=== PATIENT | male | born 1945 | race Caucasian/White ===

== ENCOUNTER 2024-10-20 17:15 | Inpatient (IN) | payer MEDICARE, OTHER ==
--- NOTE | 2024-10-20 17:30 | ERPHSYRPT ---
- History of Present Illness Time Seen by Provider: 10/20/24 17:30 Historian: patient, family Exam Limitations: no limitations Physician History: This is a cachectic appearing 79-year-old white male patient of Dr. Greenwood, out of [facility], and presents by private vehicle accompanied by family with a complaint of nausea vomiting and constipation worsening over 3 days. Patient states he cannot hold anything down. Patient has a history in the past of a colovesical fistula and underwent a colectomy at that time. Patient has stage III kidney disease. Patient has a history of gastroesophageal reflux disease, hypertension and hyperlipidemia. Timing/Duration: day(s) (3) Activities at Onset: none Quality: cramping, fullness, pressure Abdominal Pain Onset Location: generalized abdomen Pain Radiation: no radiation Severity of Pain-Max: moderate Severity of Pain-Current: moderate Modifying Factors: Improves With: vomiting, other (Constipation) Associated Symptoms: loss of appetite, nausea, vomiting, weakness Previous symptoms: no prior history, no recent treatment Allergies/Adverse Reactions: No Known Drug Allergies Allergy (Verified 10/20/24 17:41) Home Medications: Amlodipine Besylate [Norvasc] 2.5 mg PO DAILY 10/20/24 [History] Aspirin 81 mg PO DAILY 10/20/24 [History] Cyanocobalamin (Vitamin B-12) [Vitamin B-12] 2,500 mcg PO DAILY 10/20/24 [History] Ferrous Sulfate [Iron] 325 mg PO DAILY 10/20/24 [History] Fluticasone/Vilanterol [Breo Ellipta 100-25 Mcg Inhalr] 1 inh PO DAILY 10/20/24 [History] Gabapentin [Neurontin ] 100 mg PO DAILY 10/20/24 [History] Lactobacillus Combination No.4 [Probiotic] 1 each PO BID 10/20/24 [History] Lansoprazole 30 mg PO DAILY 10/20/24 [History] Levothyroxine Sodium 50 Mcg [Synthroid 50 Mcg] 50 mcg PO DAILY 10/20/24 [History] Metoprolol Tartrate 25 mg [Lopressor 25MG Tab] 25 mg PO BID 10/20/24 [History] Pravastatin Sodium 40 mg PO DAILY 10/20/24 [History] Primidone 50 MG [Mysoline 50Mg] 50 mg PO DAILY 10/20/24 [History] Tamsulosin HCl [Flomax] 0.4 mg PO DAILY 10/20/24 [History] Travel Risk - International Travel Have you traveled outside of the country in past 3 weeks: No - Emerging Infectious Disease Are you exhibiting symptoms associated with any current EIDs: No Symptoms: Abdominal Pain - Review of Systems Constitutional: Weakness Eyes: No Symptoms Ears, Nose, & Throat: No Symptoms Respiratory: No Symptoms Cardiac: No Symptoms Abdominal/Gastrointestinal: Abdominal Pain, Nausea, Vomiting, Constipation, Appetite Changes Genitourinary Symptoms: No Symptoms Musculoskeletal: No Symptoms Skin: No Symptoms Neurological: No Symptoms Psychological: No Symptoms Endocrine: No Symptoms Hematologic/Lymphatic: No Symptoms Immunological/Allergic: No Symptoms All Other Systems: Reviewed and Negative - Past Medical History Pertinent Past Medical History: Yes - Nursing Vital Signs Nursing Vital Signs: Initial Vital Signs Temperature 98.3 F 10/20/24 17:21 Pulse Rate 89 10/20/24 17:21 Respiratory Rate 20 10/20/24 17:21 Blood Pressure 126/77 10/20/24 17:21 O2 Sat by Pulse Oximetry 96 10/20/24 17:21 Pain Scale Pain Intensity 8 - Physical Exam General Appearance: mild distress, alert, anxiety, cachetic Eye Exam: PERRL/EOMI, eyes nml inspection Ears, Nose, Throat Exam: dry mucous membranes Neck Exam: normal inspection, non-tender, supple, full range of motion Respiratory Exam: normal breath sounds, lungs clear, airway intact, No chest tenderness, No respiratory distress Cardiovascular Exam: regular rate/rhythm, normal heart sounds, normal peripheral pulses Gastrointestinal/Abdomen Exam: soft, normal bowel sounds, tenderness (Generalized to palpation), guarding (Generalized to palpation), No rebound Rectal Exam: not done Back Exam: normal inspection, normal range of motion, No CVA tenderness, No vertebral tenderness Extremity Exam: normal inspection, normal range of motion, pelvis stable Neurologic Exam: alert, oriented x 3, cooperative, pedicab driver II-XII nml as tested, nml cerebellar function, nml station & gait, sensation nml Skin Exam: normal color, warm, dry Lymphatic Exam: No adenopathy SpO2 Interpretation: normal O2 Delivery: Room Air - Course Nursing assessment & vital signs reviewed: Yes Ordered Tests: Active Orders 24 hr Category Date Time Status IV Insertion STAT Care 10/20/24 17:36 Active ABDOMEN AND PELVIS W/0 CONTRAS [CT] Stat Exams 10/20/24 17:37 Completed AMYLASE Stat Lab 10/20/24 17:52 Completed CBC W DIFF Stat Lab 10/20/24 17:52 Completed CMP Stat Lab 10/20/24 17:52 Completed CULTURE,URINE Stat Lab 10/20/24 17:52 Received LIPASE Stat Lab 10/20/24 17:52 Completed Lactic Acid Stat Lab 10/20/24 17:36 Completed UA W/RFX UR CULTURE Stat Lab 10/20/24 17:52 Completed Medication Summary Discontinued Medications Generic Name Dose Route Start Last Admin Trade Name Freq PRN Reason Stop Dose Admin Hydromorphone HCl 0.5 mg 10/20/24 17:36 10/20/24 18:34 Hydromorphone 1 Mg/1ml Inj IV 10/20/24 17:37 0.5 mg STAT ONE Administration Hydromorphone HCl Confirm 10/20/24 18:26 Hydromorphone 1 Mg/1ml Inj Administered 10/20/24 18:27 Dose 1 mg .ROUTE .STK-MED ONE Sodium Chloride 1,000 mls @ 999 mls/hr 10/20/24 17:36 10/20/24 20:07 Sodium Chloride 0.9% 1000 Ml IV 10/20/24 18:36 Infused .Q1H1M STA Infusion Sodium Chloride Confirm 10/20/24 18:27 Sodium Chloride 0.9% 1000 Ml Administered 10/20/24 18:28 Dose 1,000 mls @ ud .ROUTE .STK-MED ONE Ceftriaxone Sodium 1 gm in 100 mls @ 200 mls/hr 10/20/24 18:46 10/20/24 20:35 Rocephin 1 Gm / 100 Ml Nacl IV 10/20/24 19:15 Infused STAT ONE Infusion Ceftriaxone Sodium Confirm 10/20/24 19:56 Rocephin 1 Gm / 100 Ml Nacl Administered 10/20/24 19:57 Dose 1 gm in 100 mls @ ud IV .STK-MED ONE Ondansetron HCl 4 mg 10/20/24 17:36 10/20/24 18:30 Ondansetron Hcl 4 Mg/2 Ml Vial IV 10/20/24 17:37 4 mg STAT ONE Administration Ondansetron HCl Confirm 10/20/24 18:25 Ondansetron Hcl 4 Mg/2 Ml Vial Administered 10/20/24 18:26 Dose 4 mg .ROUTE .STK-MED ONE Pantoprazole Sodium 40 mg 10/20/24 17:36 10/20/24 18:32 Pantoprazole 40 Mg Vial IV 10/20/24 17:37 40 mg STAT ONE Administration Pantoprazole Sodium Confirm 10/20/24 18:26 Pantoprazole 40 Mg Vial Administered 10/20/24 18:27 Dose 40 mg IV .STK-MED ONE Lab/Rad Data: Laboratory Result Diagrams 10/20/24 17:52 10/20/24 17:52 Laboratory Results 10/20/24 10/20/24 10/20/24 Range/Units 17:52 17:52 17:52 WBC 10.6 H (4.23-9.07) x10^3/uL RBC 5.31 (4.63-6.08) x10^6/uL Hgb 16.7 (13.7-17.5) g/dL Hct 48.1 (40.1-51.0) % MCV 90.6 (79.0-92.2) fL MCH 31.5 (25.7-32.2) pg MCHC 34.7 (32.3-36.5) g/dL RDW 13.1 (11.6-14.4) % Plt Count 195 (163-337) x10^3/uL MPV 9.6 (9.4-12.4) fL Gran % 72.9 H (34.0-67.9) % Immature Gran % (Auto) 0.2 (0.001-0.429) % Nucleat RBC Rel Count 0.0 (0.00-0.2) % Eos # (Auto) 0.59 H (0.04-0.54) x10^3/uL Immature Gran # (Auto) 0.02 (0.001-0.031) x10^3u/L Absolute Lymphs (auto) 1.27 L (1.32-3.57) x10^3/uL Absolute Monos (auto) 0.93 H (0.30-0.82) x10^3/uL Absolute Nucleated RBC 0.00 (0.00-0.012) x10^3u/L Lymphocytes % 12.0 L (21.8-53.1) % Monocytes % 8.8 (5.3-12.2) % Eosinophils % 5.6 (0.8-7.0) % Basophils % 0.5 (0.2-1.2) % Absolute Granulocytes 7.72 H (1.78-5.38) x10^3/uL Basophils # 0.05 (0.01-0.08) x10^3/uL Sodium 136 (135-145) mmol/L Potassium 4.5 (3.5-5.1) mmol/L Chloride 97 L (98-107) mmol/L Carbon Dioxide 25 (22-30) mmol/L Anion Gap 18.2 H (5-15) MEQ/L BUN 31 H (9-20) mg/dL Creatinine 1.84 H (0.66-1.25) mg/dL Estimated GFR 37.3 ML/MIN Glucose 112 H (74-106) mg/dL Lactic Acid (0.4-2.0) Calcium 10.1 (8.4-10.2) mg/dL Total Bilirubin 0.80 (0.2-1.3) mg/dL AST 24 (17-59) U/L ALT 12 (0-50) U/L Alkaline Phosphatase 129 H (38-126) U/L Serum Total Protein 7.8 (6.3-8.2) g/dL Albumin 4.6 (3.5-5.0) g/dL Amylase 67 (30-110) U/L Lipase 96 (23-300) U/L Urine Color Dark Yellow (Yellow) Urine Appearance Clear (Clear) Urine pH 5.0 (4.6-8.0) Ur Specific Vendor >=1.030 A (1.005-1.030) Urine Protein Trace A (Negative) Urine Glucose (UA) Negative (Negative) mg/dL Urine Ketones 15 A (Negative) Urine Blood Negative (Negative) Urine Nitrite Negative (Negative) Urine Bilirubin Negative (Negative) Urine Urobilinogen 1.0 A (0.2) mg/dL Ur Leukocyte Esterase Moderate A (Negative) U Hyaline Cast (Auto) 6-10 A (0-2) /LPF Urine Microscopic RBC 0-2 (0-5) /HPF Urine Microscopic WBC 21-50 A (0-5) /HPF Ur Epithelial Cells Moderate A (None Seen) /HPF Urine Bacteria None Seen (None Seen) /HPF Urine Culture Reflexed YES (NO) 10/20/24 Range/Units 17:36 WBC (4.23-9.07) x10^3/uL RBC (4.63-6.08) x10^6/uL Hgb (13.7-17.5) g/dL Hct (40.1-51.0) % MCV (79.0-92.2) fL MCH (25.7-32.2) pg MCHC (32.3-36.5) g/dL RDW (11.6-14.4) % Plt Count (163-337) x10^3/uL MPV (9.4-12.4) fL Gran % (34.0-67.9) % Immature Gran % (Auto) (0.001-0.429) % Nucleat RBC Rel Count (0.00-0.2) % Eos # (Auto) (0.04-0.54) x10^3/uL Immature Gran # (Auto) (0.001-0.031) x10^3u/L Absolute Lymphs (auto) (1.32-3.57) x10^3/uL Absolute Monos (auto) (0.30-0.82) x10^3/uL Absolute Nucleated RBC (0.00-0.012) x10^3u/L Lymphocytes % (21.8-53.1) % Monocytes % (5.3-12.2) % Eosinophils % (0.8-7.0) % Basophils % (0.2-1.2) % Absolute Granulocytes (1.78-5.38) x10^3/uL Basophils # (0.01-0.08) x10^3/uL Sodium (135-145) mmol/L Potassium (3.5-5.1) mmol/L Chloride (98-107) mmol/L Carbon Dioxide (22-30) mmol/L Anion Gap (5-15) MEQ/L BUN (9-20) mg/dL Creatinine (0.66-1.25) mg/dL Estimated GFR ML/MIN Glucose (74-106) mg/dL Lactic Acid 1.5 (0.4-2.0) Calcium (8.4-10.2) mg/dL Total Bilirubin (0.2-1.3) mg/dL AST (17-59) U/L ALT (0-50) U/L Alkaline Phosphatase (38-126) U/L Serum Total Protein (6.3-8.2) g/dL Albumin (3.5-5.0) g/dL Amylase (30-110) U/L Lipase (23-300) U/L Urine Color (Yellow) Urine Appearance (Clear) Urine pH (4.6-8.0) Ur Specific Vendor (1.005-1.030) Urine Protein (Negative) Urine Glucose (UA) (Negative) mg/dL Urine Ketones (Negative) Urine Blood (Negative) Urine Nitrite (Negative) Urine Bilirubin (Negative) Urine Urobilinogen (0.2) mg/dL Ur Leukocyte Esterase (Negative) U Hyaline Cast (Auto) (0-2) /LPF Urine Microscopic RBC (0-5) /HPF Urine Microscopic WBC (0-5) /HPF Ur Epithelial Cells (None Seen) /HPF Urine Bacteria (None Seen) /HPF Urine Culture Reflexed (NO) - Progress Progress: improved, pain not gone completely, re-examined Progress Note: 10/20/24 17:43 My medical decision making and the assignment of at least moderate complexity of this patient's medical issue today. The assignment of moderate complexity is based on review of the patient's past medical history, review of the patient's medication list, review the patient drug allergy list, history present illness and physical findings on examination. The workup in this patient includes placement of intravenous line, infusion of normal saline solution, infusion of Dilaudid, Protonix and Zofran intravenously, CBC, CMP, lactic acid level, amylase, lipase, urinalysis, CT scan of the abdomen pelvis without contrast. Differential diagnosis includes but is not limited to perforated viscus, bowel obstruction, ileus, pancreatitis, diverticulitis, colitis 10/20/24 20:19 I interpreted the patient's laboratory data results. Based on laboratory data results the patient has evidence of urinary tract infection and dehydration. The CT scan of the abdomen pelvis without contrast was interpreted by the radiologist and I reviewed the impression. The patient states dilated jejunal bowel loops with multiple air-fluid levels but no signs of ischemia. Features consistent with small bowel obstruction. There is evidence of cholelithiasis without signs of acute cholecystitis. 10/20/24 21:[address] Haque, our telehospitalist on at this time. I reviewed the patient history, physical findings, workup results. We will place this patient in observation, provide him with bowel rest, intravenous fluids, antiemetics and obtain a surgical consultation. Counseled pt/family regarding: lab results, diagnosis, rad results Medical Desision Making - Independent Historian Additional History obtained from: Family - Diagnostic Testing Diagnostic test were ordered, analyzed, and reviewed by me: Yes Radiological Interpretation: Reviewed by me, Teleradiologist Report - Risk of complications The pt has a high risk of morbidity or mortality based on: Decision regarding hospitilization or escalation of hosp level of care - Departure Departure Disposition: Observation Clinical Impression: Small bowel obstruction, Dehydration, Urinary tract infection Condition: Stable Critical Care Time: No
[2024-10-20 17:55] LABS: BASOPHIL % 0.5 % (0.2-1.2); Basophil (Absolute #) 0.05 x10^3/uL (0.01-0.08); Eosinophil (Absolute #) 0.59 x10^3/uL (0.04-0.54); Hematocrit 48.1 % (40.1-51.0); Hemoglobin 16.7 g/dL (13.7-17.5); IMMATURE GRAN # 0.02 x10^3u/L (0.001-0.031); IMMATURE GRAN % 0.2 % (0.001-0.429); Lymphocyte (Absolute #) 1.27 x10^3/uL (1.32-3.57); Mean Corpuscular Hemoglobin 31.5 pg (25.7-32.2); Mean Corpuscular Hgb Concent. 34.7 g/dL (32.3-36.5); Monocyte (Absolute #) 0.93 x10^3/uL (0.30-0.82); NUCLEATED RBC # 0.00 x10^3u/L (0.00-0.012); NUCLEATED RBC % 0.0 % (0.00-0.2); Platelet Count 195 x10^3/uL (163-337); Red Blood Count 5.31 x10^6/uL (4.63-6.08); White Blood Count 10.6 x10^3/uL (4.23-9.07)
[2024-10-20 18:08] LABS: Calcium 10.1 mg/dL (8.4-10.2); Carbon Dioxide 25.0 mmol/L (22-30); Creatinine 1 1.84 mg/dL (0.66-1.25); EST GLOMERULAR FILTRATION RATE 37.3 ML/MIN; Glucose 112.0 mg/dL (74-106); Potassium 4.5 mmol/L (3.5-5.1); SGOT/AST 24.0 U/L (17-59); SGPT/ALT 12.0 U/L (0-50); Total Protein 7.8 g/dL (6.3-8.2)
[2024-10-20 18:18] LABS: Glucose, Urine Negative (Negative); Protein,Urine Dip Trace (Negative); RBC 0-2 /HPF (0-5); WBC 21-50 /HPF (0-5)
[2024-10-20] MEDS ORDERED: Zofran 4 MG/2 ML VIAL ONE (18:25)
[2024-10-20] MEDS ORDERED: PROTONIX 40 MG IV IV ONE (18:26)
[2024-10-20] MEDS ORDERED: Hydromorphone 1 mg/ml Injection ONE (18:26)
[2024-10-20] MEDS: Zofran 4 MG/2 ML VIAL IV ONE (18:30)
[2024-10-20] MEDS: PROTONIX 40 MG IV IV ONE (18:32)
[2024-10-20] MEDS: Hydromorphone 1 mg/ml Injection IV ONE (18:34)
--- NOTE | 2024-10-20 19:38 | XRAY ---
CLINICAL HISTORY: N/P; constipation; ABD pain COMPARISON: No prior studies available for comparison. TECHNIQUE: Non-contrast CT of the abdomen and pelvis was performed, with the following protocol: axial images, and reconstructed coronal and sagittal images. One of the following dose reduction techniques was utilized for this exam: Automated exposure control, adjustment of the mA and/or kV according to patient size, and use of iterative reconstruction. FINDINGS: Abdomen: Liver: Normal in size, shape, and density. No focal lesions, cysts, or masses were identified. Gallbladder and Biliary System: Multiple small gallstones, averaging 3 mm. No signs of acute cholecystitis. Pancreas: Pancreatic head, body, and tail are visualized and appear normal in size and density. No pancreatic masses or calcifications were noted. Spleen: Normal in size, shape, and density. No splenic lesions or masses were identified. Calcific foci are noted likely granulmatous. Appendix: The appendix is normal in size without chelsea-appendiceal fat stranding and without an appendicolith. No evidence of appendiceal abscess or perforation. Kidneys and Adrenal Glands: Both kidneys are normal in size, shape, and position. Cortical thickness is decreased. No renal calculi or hydronephrosis. Left renal simple cyst measuring 2.5 cm. Adrenal glands are unremarkable. Abdominal Aorta and Vessels: Atherosclerotic changes of the aorta and both iliac vessels. Pelvis: Urinary Bladder is inadequately distended. Prostate: Mild prostatomegaly. Seminal Vesicles: Normal appearance without abnormal enlargement or mass. Peritoneal and Retroperitoneal Structures: No free fluid or abnormal fluid collections were identified within the abdomen or pelvis. No lymphadenopathy was noted. Bowel: Dilated jejunal bowel loops, showing multiple air fluid levels, no signs of ischemia at the time of examination. Features of acute small bowel obstruction. Distal small bowel loops are collapsed at the pelvis. Uncomplicated colonic diverticulosis. Metallic jaspreet related to the rectum (post-operative changes). Bones and Soft Tissues: Pelvic bones and soft tissues are unremarkable. No fractures or abnormal masses were identified. Diffuse spondylotic changes. Moderate right lumbar dextroscoliosis with Walton angle 32°. Left sided hip replacement. IMPRESSION: 1. Dilated jejunal bowel loops, showing multiple air fluid levels, no signs of ischemia at the time of examination. Features of acute small bowel obstruction. 2. Multiple small gallstones, averaging 3 mm. No signs of acute cholecystitis. Electronically Signed by: Enoc Gan MD. (10/20/2024 19:35:47 EDT)
[2024-10-20] MEDS ORDERED: ROCEPHIN 1 GM / 100 ML NaCl 1 GM/100 ML IVPB IV ONE (19:56)
[2024-10-20] MEDS: ROCEPHIN 1 GM / 100 ML NaCl 1 GM/100 ML IVPB IV ONE (20:00)
[2024-10-20] MEDS: TYLENOL 325 MG PO PRN (22:15)
--- NOTE | 2024-10-20 22:49 | PCM.HP ---
History of Present Illness - Chief Complaint Chief Complaint: sbo Date: 10/20/24 History of Present Illness: Mr. CARRASCO is a 79 year old male with a past medical history significant for hypertension, hyperlipidemia and history of a colovesical fistula status post colectomy and complicated by NARDA who presents to the hospital with a 3 day history of nausea, abdominal pain and multiple episodes of vomiting (about 7 times). Upon arrival, he was given IV pain medicine and underwent CT scan abd that demonstrated small bowel obstruction but no evidence of abscess or acute cholecystitis. He was started on IV antibiotics and has been recommended for admission. He is seen via telehealth with friend at bedside, awake/alert. No fever/chills. No chest pain or shortness of breath. No diarrhea. No dysuria, hematuria or urgency. Creatinine was elevated at 1.8 with a baseline of around 1.5. - Review of Systems Constitutional: No Fever, No Chills Eyes: No Vision Changes Ears, Nose, & Throat: No Sinus Drainage Respiratory: No Cough, No Orthopnea, No Short Of Breath Cardiac: No Chest Pain, No Edema, No Palpitations Abdominal/Gastrointestinal: Abdominal Pain, Nausea, Vomiting, No Diarrhea Genitourinary Symptoms: No Dysuria, No Frequency, No Hematuria Musculoskeletal: No Arthralgias Skin: No Rash Neurological: No Focal Weakness, No Headache Psychological: No Suicidal Ideations Endocrine: No Polyuria, No Polydipsia Hematologic/Lymphatic: No Easy Bleeding Medications & Allergies Home Medications: Home Medication List Amlodipine Besylate [Norvasc] 2.5 mg PO DAILY 10/20/24 [History Confirmed 10/20/24] Aspirin 81 mg PO DAILY 10/20/24 [History Confirmed 10/20/24] Cyanocobalamin (Vitamin B-12) [Vitamin B-12] 2,500 mcg PO DAILY 10/20/24 [History Confirmed 10/20/24] Ferrous Sulfate [Iron] 325 mg PO DAILY 10/20/24 [History Confirmed 10/20/24] Fluticasone/Vilanterol [Breo Ellipta 100-25 Mcg Inhalr] 1 inh PO DAILY 10/20/24 [History Confirmed 10/20/24] Gabapentin [Neurontin ] 100 mg PO DAILY 10/20/24 [History Confirmed 10/20/24] Lansoprazole 30 mg PO DAILY 10/20/24 [History Confirmed 10/20/24] Levothyroxine Sodium 50 Mcg [Synthroid 50 Mcg] 50 mcg PO DAILY 10/20/24 [History Confirmed 10/20/24] Metoprolol Tartrate 25 mg [Lopressor 25MG Tab] 25 mg PO BID 10/20/24 [History Confirmed 10/20/24] Pravastatin Sodium 40 mg PO DAILY 10/20/24 [History Confirmed 10/20/24] Primidone 50 MG [Mysoline 50Mg] 50 mg PO DAILY 10/20/24 [History Confirmed 10/20/24] Tamsulosin HCl [Flomax] 0.4 mg PO DAILY 10/20/24 [History Confirmed 10/20/24] Allergies/Adverse Reactions: Allergies Allergy/AdvReac Type Severity Reaction Status Date / Time No Known Drug Allergies Allergy Verified 10/20/24 17:41 - Past Medical History Past Medical History: Yes Cardiac History: Arrhythmia, Hypertension Respiratory History: COPD, Pneumonia Endocrine Medical History: Hypothyroidism GI Medical History: Other History: Renal Disease - Past Surgical History Past Surgical History: Yes GI Surgical History: Colon Resection Musculskeletal Surgical Hx: Joint Replacement Other Surgical History: left hip - Social History Smoking Status: Never smoker Exposure to second hand smoke: No Alcohol: None Drug Use: none - Social Determinants of Health Will the patient participate in the screening: Yes Do you worry about a steady place to live?: Yes Do you have any problems with any of the following?: No known problems In the past 12 months,have you had to go without utilities?: No Have you or anyone in your house had to go without enough: No Transportation Issues: No Has anyone in your support network made you feel unsafe?: No Does the patient want assistance with any of the above?: No - Physical Exam Vital Signs: Vital Signs - 24 hr Temp Pulse Resp BP BP Pulse Ox 10/20/24 21:34 98.8 F 79 16 147/80 10/20/24 21:05 98.8 F 79 16 147/80 10/20/24 21:00 72 117/69 95 10/20/24 20:30 75 16 118/73 94 L 10/20/24 20:00 76 19 121/58 94 L 10/20/24 19:30 74 20 128/65 95 10/20/24 19:00 73 13 128/71 95 10/20/24 18:30 81 18 121/80 95 10/20/24 17:30 88 15 120/79 94 L 10/20/24 17:21 98.3 F 89 20 126/77 96 General Appearance: no apparent distress Neurologic Exam: alert, oriented x 3 Ears, Nose, Throat Exam: dry mucous membranes Neck Exam: supple Respiratory Exam: No respiratory distress Cardiovascular Exam: regular rate/rhythm Gastrointestinal/Abdomen Exam: soft, tenderness, guarding Back Exam: normal inspection Extremity Exam: No pedal edema, No swelling Skin Exam: normal color, No rash Results - Labs Lab/Micro Results: Lab Results-Last 24 Hours 10/20/24 10/20/24 10/20/24 Range/Units 17:36 17:52 17:52 WBC 10.6 H (4.23-9.07) x10^3/uL RBC 5.31 (4.63-6.08) x10^6/uL Hgb 16.7 (13.7-17.5) g/dL Hct 48.1 (40.1-51.0) % MCV 90.6 (79.0-92.2) fL MCH 31.5 (25.7-32.2) pg MCHC 34.7 (32.3-36.5) g/dL RDW 13.1 (11.6-14.4) % Plt Count 195 (163-337) x10^3/uL MPV 9.6 (9.4-12.4) fL Gran % 72.9 H (34.0-67.9) % Immature Gran % (Auto) 0.2 (0.001-0.429) % Nucleat RBC Rel Count 0.0 (0.00-0.2) % Eos # (Auto) 0.59 H (0.04-0.54) x10^3/uL Immature Gran # (Auto) 0.02 (0.001-0.031) x10^3u/L Absolute Lymphs (auto) 1.27 L (1.32-3.57) x10^3/uL Absolute Monos (auto) 0.93 H (0.30-0.82) x10^3/uL Absolute Nucleated RBC 0.00 (0.00-0.012) x10^3u/L Lymphocytes % 12.0 L (21.8-53.1) % Monocytes % 8.8 (5.3-12.2) % Eosinophils % 5.6 (0.8-7.0) % Basophils % 0.5 (0.2-1.2) % Absolute Granulocytes 7.72 H (1.78-5.38) x10^3/uL Basophils # 0.05 (0.01-0.08) x10^3/uL Sodium (135-145) mmol/L Potassium (3.5-5.1) mmol/L Chloride (98-107) mmol/L Carbon Dioxide (22-30) mmol/L Anion Gap (5-15) MEQ/L BUN (9-20) mg/dL Creatinine (0.66-1.25) mg/dL Estimated GFR ML/MIN Glucose (74-106) mg/dL Lactic Acid 1.5 (0.4-2.0) Calcium (8.4-10.2) mg/dL Total Bilirubin (0.2-1.3) mg/dL AST (17-59) U/L ALT (0-50) U/L Alkaline Phosphatase (38-126) U/L Serum Total Protein (6.3-8.2) g/dL Albumin (3.5-5.0) g/dL Amylase (30-110) U/L Lipase (23-300) U/L Urine Color Dark Yellow (Yellow) Urine Appearance Clear (Clear) Urine pH 5.0 (4.6-8.0) Ur Specific Mcgregor >=1.030 A (1.005-1.030) Urine Protein Trace A (Negative) Urine Glucose (UA) Negative (Negative) mg/dL Urine Ketones 15 A (Negative) Urine Blood Negative (Negative) Urine Nitrite Negative (Negative) Urine Bilirubin Negative (Negative) Urine Urobilinogen 1.0 A (0.2) mg/dL Ur Leukocyte Esterase Moderate A (Negative) U Hyaline Cast (Auto) 6-10 A (0-2) /LPF Urine Microscopic RBC 0-2 (0-5) /HPF Urine Microscopic WBC 21-50 A (0-5) /HPF Ur Epithelial Cells Moderate A (None Seen) /HPF Urine Bacteria None Seen (None Seen) /HPF Urine Culture Reflexed YES (NO) 10/20/24 Range/Units 17:52 WBC (4.23-9.07) x10^3/uL RBC (4.63-6.08) x10^6/uL Hgb (13.7-17.5) g/dL Hct (40.1-51.0) % MCV (79.0-92.2) fL MCH (25.7-32.2) pg MCHC (32.3-36.5) g/dL RDW (11.6-14.4) % Plt Count (163-337) x10^3/uL MPV (9.4-12.4) fL Gran % (34.0-67.9) % Immature Gran % (Auto) (0.001-0.429) % Nucleat RBC Rel Count (0.00-0.2) % Eos # (Auto) (0.04-0.54) x10^3/uL Immature Gran # (Auto) (0.001-0.031) x10^3u/L Absolute Lymphs (auto) (1.32-3.57) x10^3/uL Absolute Monos (auto) (0.30-0.82) x10^3/uL Absolute Nucleated RBC (0.00-0.012) x10^3u/L Lymphocytes % (21.8-53.1) % Monocytes % (5.3-12.2) % Eosinophils % (0.8-7.0) % Basophils % (0.2-1.2) % Absolute Granulocytes (1.78-5.38) x10^3/uL Basophils # (0.01-0.08) x10^3/uL Sodium 136 (135-145) mmol/L Potassium 4.5 (3.5-5.1) mmol/L Chloride 97 L (98-107) mmol/L Carbon Dioxide 25 (22-30) mmol/L Anion Gap 18.2 H (5-15) MEQ/L BUN 31 H (9-20) mg/dL Creatinine 1.84 H (0.66-1.25) mg/dL Estimated GFR 37.3 ML/MIN Glucose 112 H (74-106) mg/dL Lactic Acid (0.4-2.0) Calcium 10.1 (8.4-10.2) mg/dL Total Bilirubin 0.80 (0.2-1.3) mg/dL AST 24 (17-59) U/L ALT 12 (0-50) U/L Alkaline Phosphatase 129 H (38-126) U/L Serum Total Protein 7.8 (6.3-8.2) g/dL Albumin 4.6 (3.5-5.0) g/dL Amylase 67 (30-110) U/L Lipase 96 (23-300) U/L Urine Color (Yellow) Urine Appearance (Clear) Urine pH (4.6-8.0) Ur Specific Mcgregor (1.005-1.030) Urine Protein (Negative) Urine Glucose (UA) (Negative) mg/dL Urine Ketones (Negative) Urine Blood (Negative) Urine Nitrite (Negative) Urine Bilirubin (Negative) Urine Urobilinogen (0.2) mg/dL Ur Leukocyte Esterase (Negative) U Hyaline Cast (Auto) (0-2) /LPF Urine Microscopic RBC (0-5) /HPF Urine Microscopic WBC (0-5) /HPF Ur Epithelial Cells (None Seen) /HPF Urine Bacteria (None Seen) /HPF Urine Culture Reflexed (NO) - Radiology Impressions Radiology Exams & Impressions: Radiology Procedures Category Date Time Status ABDOMEN AND PELVIS W/0 CONTRAS [CT] Stat Exams 10/20/24 17:37 Completed Assessment/Plan (1) Small bowel obstruction Current Visit: Yes Status: Acute Assessment & Plan: Abdominal pain, n/v x 3days 1. Admit to hospital 2. NPO/bowel rest 3. Start IVFs 4. Anti-emetics 5. Pain control 6. DVT/GI prophylaxis 7. Surgical consult Code(s): K56.609 - UNSP INTESTNL OBST, UNSP TO PARTIAL VERSUS COMPLETE OBST (2) Acute kidney injury Current Visit: Yes Status: Acute Assessment & Plan: Likely from prerenal azotemia on top of CKD stage III - creatinine elevated at 1.8 1. IVFs 2. Check urine lytes, urine creatinine 3. Hold MIKAL/ARB 4. Follow I/Os 5. Watch electrolytes, creatinine closely Code(s): N17.9 - ACUTE KIDNEY FAILURE, UNSPECIFIED (3) Hypertensive chronic kidney disease with stage 1 through stage 4 chronic kidney disease, or unspecified chronic kidney disease Current Visit: Yes Status: Acute Assessment & Plan: Blood pressure under reasonable control 1. Hold oral bp meds for now 2. Metoprolol IV prn 3. Monitor blood pressure readings Code(s): I12.9 - HYPERTENSIVE CHRONIC KIDNEY DISEASE W STG 1-4/UNSP CHR KDNY (4) Colovesical fistula Current Visit: Yes Status: Acute Assessment & Plan: Status post partial colectomy in the past Code(s): N32.1 - VESICOINTESTINAL FISTULA Telemedicine Encounter - Telemedicine Encounter Telemedicine Encounter: "The entirety of this encounter was performed via Telemedicine" This visit was performed using real-time audio and video connection between my location and thepatients locationwith the assistance of a surrogateat the patients location. Written or verbal consent was obtained from the patient/guardian to perform this visit [email or web address]. Any patient questions regarding the telemedicine interaction were answered.
[2024-10-20] MEDS: LOPRESSOR INJECTION IV SCH (23:03)
[2024-10-20] MEDS: Hydromorphone 1 mg/ml Injection IV PRN (23:09)
[2024-10-20 23:50] LABS: Sodium, Urine 29.0 mmol/L (30-90)
[2024-10-20 23:52] LABS: CREATININE,URINE RANDOM 262.1 MG/DL
[2024-10-21 05:20] LABS: BASOPHIL % 0.8 % (0.2-1.2); Basophil (Absolute #) 0.06 x10^3/uL (0.01-0.08); Eosinophil (Absolute #) 0.84 x10^3/uL (0.04-0.54); Hematocrit 43.0 % (40.1-51.0); Hemoglobin 14.2 g/dL (13.7-17.5); IMMATURE GRAN # 0.01 x10^3u/L (0.001-0.031); IMMATURE GRAN % 0.1 % (0.001-0.429); Lymphocyte (Absolute #) 1.62 x10^3/uL (1.32-3.57); Mean Corpuscular Hemoglobin 31.3 pg (25.7-32.2); Mean Corpuscular Hgb Concent. 33.0 g/dL (32.3-36.5); Monocyte (Absolute #) 0.85 x10^3/uL (0.30-0.82); NUCLEATED RBC # 0.00 x10^3u/L (0.00-0.012); NUCLEATED RBC % 0.0 % (0.00-0.2); Platelet Count 144 x10^3/uL (163-337); Red Blood Count 4.54 x10^6/uL (4.63-6.08); White Blood Count 7.3 x10^3/uL (4.23-9.07)
[2024-10-21 05:45] LABS: Calcium 8.7 mg/dL (8.4-10.2); Carbon Dioxide 25.0 mmol/L (22-30); Creatinine 1 1.6 mg/dL (0.66-1.25); EST GLOMERULAR FILTRATION RATE 44.1 ML/MIN; Glucose 71.0 mg/dL (74-106); Potassium 4.9 mmol/L (3.5-5.1); SGOT/AST 17.0 U/L (17-59); SGPT/ALT 7.0 U/L (0-50); Total Protein 5.7 g/dL (6.3-8.2)
[2024-10-21] MEDS: Dextrose 5%-NS IV Solution 1000 ML 1,000 ML IV SCH (08:04)
--- NOTE | 2024-10-21 08:09 | PCM.NOTE ---
Date and Time: 10/21/24 0802 Subjective Assessment: Mr. CARRASCO is a 79-year-old male with a past medical history of hypertension, hyperlipidemia, and a history of colovesical fistula status post colectomy complicated by acute kidney injury presented to the hospital on 10/20/24 with a three-day history of nausea, abdominal pain, and approximately seven episodes of vomiting. On arrival, he received IV pain management and underwent a CT scan of the abdomen, which revealed a small bowel obstruction without evidence of abscess or acute cholecystitis. He was started on IV antibiotics and recommended for admission. The patient was evaluated via telehealth with a friend present at the bedside; he was awake and alert. He denied fever, chills, chest pain, sh ortness of breath, diarrhea, dysuria, hematuria, or urinary urgency. His creatinine was elevated at 1.8, with a known baseline of approximately 1.5. As of 10/21, the patient reports no overnight nausea or vomiting. His abdominal pain has improved, and he has active bowel sounds in all four quadrants. He is currently awaiting surgical consultation for further recommendations regarding the small bowel obstruction. Ceftriaxone is being continued for a urinary tract infection, with urine culture results pending; preliminary gram stain shows gram-negative organisms. His acute kidney injury is improving, and IV fluids are being continued. The patient currently denies any new concerns. - Review of Systems Constitutional: No Fever, No Chills Eyes: No Symptoms Ears, Nose, & Throat: No Symptoms Respiratory: No Cough, No Short Of Breath Cardiac: No Chest Pain, No Edema, No Syncope Abdominal/Gastrointestinal: No Abdominal Pain, No Nausea, No Vomiting, No Diarrhea Genitourinary Symptoms: No Dysuria Musculoskeletal: No Back Pain, No Neck Pain Skin: No Rash Neurological: No Dizziness, No Focal Weakness, No Sensory Changes Psychological: No Symptoms Endocrine: No Symptoms Hematologic/Lymphatic: No Symptoms Immunological/Allergic: No Symptoms Objective Exam General Appearance: no apparent distress, alert Neurologic Exam: alert, oriented x 3, cooperative, normal mood/affect, nml cerebellar function, sensation nml, No motor deficits Skin Exam: normal color, warm, dry Eye Exam: PERRL, EOMI, eyes nml inspection Ears, Nose, Throat Exam: normal ENT inspection, pharynx normal, moist mucous membranes Neck Exam: normal inspection, non-tender, supple, full range of motion Respiratory Exam: normal breath sounds, lungs clear, No respiratory distress Cardiovascular Exam: regular rate/rhythm, normal heart sounds Gastrointestinal/Abdomen Exam: soft, No tenderness, No mass Extremity Exam: normal inspection, normal range of motion Back Exam: normal inspection, normal range of motion, No CVA tenderness, No vertebral tenderness Male Genitalia Exam: deferred Rectal Exam: deferred Objective Data Vital Signs: Vital Signs - 24 hr Temp Pulse Resp BP BP Pulse Ox 10/21/24 07:13 97.7 F 69 16 99/51 93 L 10/21/24 03:53 98.0 F 76 18 110/58 94 L 10/21/24 00:00 98.8 F 10/20/24 21:34 98.8 F 79 16 147/80 10/20/24 21:05 98.8 F 79 16 147/80 10/20/24 21:00 72 117/69 95 10/20/24 20:30 75 16 118/73 94 L 10/20/24 20:00 76 19 121/58 94 L 10/20/24 19:30 74 20 128/65 95 10/20/24 19:00 73 13 128/71 95 10/20/24 18:30 81 18 121/80 95 10/20/24 17:30 88 15 120/79 94 L 10/20/24 17:21 98.3 F 89 20 126/77 96 Pain Assessment - Last Documented Pain Intensity 0 Pain Scale Used 0-10 Pain Scale Intake and Output: Intake & Output 10/18/24 10/19/24 10/20/24 10/21/24 11:59 11:59 11:59 11:59 Intake Total 1387 Balance 1387 Weight 62.7 kg Lab Results: Lab Results-Last 24 Hours 10/20/24 10/20/24 10/20/24 Range/Units 17:36 17:52 17:52 WBC 10.6 H (4.23-9.07) x10^3/uL RBC 5.31 (4.63-6.08) x10^6/uL Hgb 16.7 (13.7-17.5) g/dL Hct 48.1 (40.1-51.0) % MCV 90.6 (79.0-92.2) fL MCH 31.5 (25.7-32.2) pg MCHC 34.7 (32.3-36.5) g/dL RDW 13.1 (11.6-14.4) % Plt Count 195 (163-337) x10^3/uL MPV 9.6 (9.4-12.4) fL Gran % 72.9 H (34.0-67.9) % Immature Gran % (Auto) 0.2 (0.001-0.429) % Nucleat RBC Rel Count 0.0 (0.00-0.2) % Eos # (Auto) 0.59 H (0.04-0.54) x10^3/uL Immature Gran # (Auto) 0.02 (0.001-0.031) x10^3u/L Absolute Lymphs (auto) 1.27 L (1.32-3.57) x10^3/uL Absolute Monos (auto) 0.93 H (0.30-0.82) x10^3/uL Absolute Nucleated RBC 0.00 (0.00-0.012) x10^3u/L Lymphocytes % 12.0 L (21.8-53.1) % Monocytes % 8.8 (5.3-12.2) % Eosinophils % 5.6 (0.8-7.0) % Basophils % 0.5 (0.2-1.2) % Absolute Granulocytes 7.72 H (1.78-5.38) x10^3/uL Basophils # 0.05 (0.01-0.08) x10^3/uL Sodium (135-145) mmol/L Potassium (3.5-5.1) mmol/L Chloride (98-107) mmol/L Carbon Dioxide (22-30) mmol/L Anion Gap (5-15) MEQ/L BUN (9-20) mg/dL Creatinine (0.66-1.25) mg/dL Estimated GFR ML/MIN Glucose (74-106) mg/dL Lactic Acid 1.5 (0.4-2.0) Calcium (8.4-10.2) mg/dL Magnesium (1.6-2.3) mg/dL Total Bilirubin (0.2-1.3) mg/dL AST (17-59) U/L ALT (0-50) U/L Alkaline Phosphatase (38-126) U/L Serum Total Protein (6.3-8.2) g/dL Albumin (3.5-5.0) g/dL Amylase (30-110) U/L Lipase (23-300) U/L Urine Color Dark Yellow (Yellow) Urine Appearance Clear (Clear) Urine pH 5.0 (4.6-8.0) Ur Specific [place] >=1.030 A (1.005-1.030) Urine Protein Trace A (Negative) Urine Glucose (UA) Negative (Negative) mg/dL Urine Ketones 15 A (Negative) Urine Blood Negative (Negative) Urine Nitrite Negative (Negative) Urine Bilirubin Negative (Negative) Urine Urobilinogen 1.0 A (0.2) mg/dL Ur Leukocyte Esterase Moderate A (Negative) U Hyaline Cast (Auto) 6-10 A (0-2) /LPF Urine Microscopic RBC 0-2 (0-5) /HPF Urine Microscopic WBC 21-50 A (0-5) /HPF Ur Epithelial Cells Moderate A (None Seen) /HPF Urine Bacteria None Seen (None Seen) /HPF Urine Culture Reflexed YES (NO) Ur Random Creatinine MG/DL Urine Sodium (30-90) mmol/L 10/20/24 10/20/24 10/21/24 Range/Units 17:52 17:52 05:16 WBC 7.3 (4.23-9.07) x10^3/uL RBC 4.54 L (4.63-6.08) x10^6/uL Hgb 14.2 (13.7-17.5) g/dL Hct 43.0 (40.1-51.0) % MCV 94.7 H (79.0-92.2) fL MCH 31.3 (25.7-32.2) pg MCHC 33.0 (32.3-36.5) g/dL RDW 13.2 (11.6-14.4) % Plt Count 144 L (163-337) x10^3/uL MPV 9.2 L (9.4-12.4) fL Gran % 53.9 (34.0-67.9) % Immature Gran % (Auto) 0.1 (0.001-0.429) % Nucleat RBC Rel Count 0.0 (0.00-0.2) % Eos # (Auto) 0.84 H (0.04-0.54) x10^3/uL Immature Gran # (Auto) 0.01 (0.001-0.031) x10^3u/L Absolute Lymphs (auto) 1.62 (1.32-3.57) x10^3/uL Absolute Monos (auto) 0.85 H (0.30-0.82) x10^3/uL Absolute Nucleated RBC 0.00 (0.00-0.012) x10^3u/L Lymphocytes % 22.1 (21.8-53.1) % Monocytes % 11.6 (5.3-12.2) % Eosinophils % 11.5 H (0.8-7.0) % Basophils % 0.8 (0.2-1.2) % Absolute Granulocytes 3.95 (1.78-5.38) x10^3/uL Basophils # 0.06 (0.01-0.08) x10^3/uL Sodium 136 (135-145) mmol/L Potassium 4.5 (3.5-5.1) mmol/L Chloride 97 L (98-107) mmol/L Carbon Dioxide 25 (22-30) mmol/L Anion Gap 18.2 H (5-15) MEQ/L BUN 31 H (9-20) mg/dL Creatinine 1.84 H (0.66-1.25) mg/dL Estimated GFR 37.3 ML/MIN Glucose 112 H (74-106) mg/dL Lactic Acid (0.4-2.0) Calcium 10.1 (8.4-10.2) mg/dL Magnesium (1.6-2.3) mg/dL Total Bilirubin 0.80 (0.2-1.3) mg/dL AST 24 (17-59) U/L ALT 12 (0-50) U/L Alkaline Phosphatase 129 H (38-126) U/L Serum Total Protein 7.8 (6.3-8.2) g/dL Albumin 4.6 (3.5-5.0) g/dL Amylase 67 (30-110) U/L Lipase 96 (23-300) U/L Urine Color (Yellow) Urine Appearance (Clear) Urine pH (4.6-8.0) Ur Specific [place] (1.005-1.030) Urine Protein (Negative) Urine Glucose (UA) (Negative) mg/dL Urine Ketones (Negative) Urine Blood (Negative) Urine Nitrite (Negative) Urine Bilirubin (Negative) Urine Urobilinogen (0.2) mg/dL Ur Leukocyte Esterase (Negative) U Hyaline Cast (Auto) (0-2) /LPF Urine Microscopic RBC (0-5) /HPF Urine Microscopic WBC (0-5) /HPF Ur Epithelial Cells (None Seen) /HPF Urine Bacteria (None Seen) /HPF Urine Culture Reflexed (NO) Ur Random Creatinine 262.1 MG/DL Urine Sodium 29 L (30-90) mmol/L 10/21/24 Range/Units 05:16 WBC (4.23-9.07) x10^3/uL RBC (4.63-6.08) x10^6/uL Hgb (13.7-17.5) g/dL Hct (40.1-51.0) % MCV (79.0-92.2) fL MCH (25.7-32.2) pg MCHC (32.3-36.5) g/dL RDW (11.6-14.4) % Plt Count (163-337) x10^3/uL MPV (9.4-12.4) fL Gran % (34.0-67.9) % Immature Gran % (Auto) (0.001-0.429) % Nucleat RBC Rel Count (0.00-0.2) % Eos # (Auto) (0.04-0.54) x10^3/uL Immature Gran # (Auto) (0.001-0.031) x10^3u/L Absolute Lymphs (auto) (1.32-3.57) x10^3/uL Absolute Monos (auto) (0.30-0.82) x10^3/uL Absolute Nucleated RBC (0.00-0.012) x10^3u/L Lymphocytes % (21.8-53.1) % Monocytes % (5.3-12.2) % Eosinophils % (0.8-7.0) % Basophils % (0.2-1.2) % Absolute Granulocytes (1.78-5.38) x10^3/uL Basophils # (0.01-0.08) x10^3/uL Sodium 137 (135-145) mmol/L Potassium 4.9 (3.5-5.1) mmol/L Chloride 104 (98-107) mmol/L Carbon Dioxide 25 (22-30) mmol/L Anion Gap 12.2 (5-15) MEQ/L BUN 33 H (9-20) mg/dL Creatinine 1.60 H (0.66-1.25) mg/dL Estimated GFR 44.1 ML/MIN Glucose 71 L (74-106) mg/dL Lactic Acid (0.4-2.0) Calcium 8.7 (8.4-10.2) mg/dL Magnesium 1.7 (1.6-2.3) mg/dL Total Bilirubin 0.50 (0.2-1.3) mg/dL AST 17 (17-59) U/L ALT 7 (0-50) U/L Alkaline Phosphatase 98 (38-126) U/L Serum Total Protein 5.7 L (6.3-8.2) g/dL Albumin 3.4 L (3.5-5.0) g/dL Amylase (30-110) U/L Lipase (23-300) U/L Urine Color (Yellow) Urine Appearance (Clear) Urine pH (4.6-8.0) Ur Specific [place] (1.005-1.030) Urine Protein (Negative) Urine Glucose (UA) (Negative) mg/dL Urine Ketones (Negative) Urine Blood (Negative) Urine Nitrite (Negative) Urine Bilirubin (Negative) Urine Urobilinogen (0.2) mg/dL Ur Leukocyte Esterase (Negative) U Hyaline Cast (Auto) (0-2) /LPF Urine Microscopic RBC (0-5) /HPF Urine Microscopic WBC (0-5) /HPF Ur Epithelial Cells (None Seen) /HPF Urine Bacteria (None Seen) /HPF Urine Culture Reflexed (NO) Ur Random Creatinine MG/DL Urine Sodium (30-90) mmol/L Radiology Exams: Radiology Procedures Category Date Time Status ABDOMEN AND PELVIS W/0 CONTRAS [CT] Stat Exams 10/20/24 17:37 Completed Medications: Medications Generic Name Dose Route Start Last Admin Trade Name Freq PRN Reason Stop Dose Admin Acetaminophen 650 mg 10/20/24 21:26 10/20/24 22:15 Acetaminophen 325 Mg Tablet PO 11/19/24 21:25 650 mg Q4H PRN PRN Administration PAIN, FEVER, HEADACHE Enoxaparin Sodium 40 mg 10/21/24 10:00 Enoxaparin Sodium 40 Mg/0.4 Ml Syringe SQ 11/20/24 09:59 DAILY EVELIN Hydromorphone HCl 1 mg 10/20/24 22:54 10/21/24 05:37 Hydromorphone 1 Mg/1ml Inj IV 10/25/24 22:53 1 mg Q4H PRN PRN Administration PAIN Ceftriaxone Sodium 1 gm in 100 mls @ 200 mls/hr 10/21/24 10:00 Rocephin 1 Gm / 100 Ml Nacl IV 11/20/24 09:59 Q24H10 EVELIN Dextrose/Sodium Chloride 1,000 mls @ 75 mls/hr 10/21/24 08:00 Dextrose 5%-Ns Iv Solution 1000 Ml IV 11/20/24 07:59 .[id number] EVELIN Metoprolol Tartrate 5 mg 10/20/24 23:00 10/21/24 04:07 Metoprolol Tartrate 5 Mg/5 Ml Vial IV 11/19/24 22:59 5 mg Q6H EVELIN Administration Ondansetron HCl 4 mg 10/20/24 21:26 Ondansetron Hcl 4 Mg/2 Ml Vial IV 11/19/24 21:25 Q6H PRN PRN NAUSEA/VOMITING Discontinued Medications Generic Name Dose Route Start Last Admin Trade Name Freq PRN Reason Stop Dose Admin Hydromorphone HCl 0.5 mg 10/20/24 17:36 10/20/24 18:34 Hydromorphone 1 Mg/1ml Inj IV 10/20/24 17:37 0.5 mg STAT ONE Administration Hydromorphone HCl Confirm 10/20/24 18:26 Hydromorphone 1 Mg/1ml Inj Administered 10/20/24 18:27 Dose 1 mg .ROUTE .STK-MED ONE Sodium Chloride 1,000 mls @ 999 mls/hr 10/20/24 17:36 10/20/24 20:07 Sodium Chloride 0.9% 1000 Ml IV 10/20/24 18:36 Infused .Q1H1M STA Infusion Sodium Chloride Confirm 10/20/24 18:27 Sodium Chloride 0.9% 1000 Ml Administered 10/20/24 18:28 Dose 1,000 mls @ ud .ROUTE .STK-MED ONE Ceftriaxone Sodium 1 gm in 100 mls @ 200 mls/hr 10/20/24 18:46 10/20/24 20:35 Rocephin 1 Gm / 100 Ml Nacl IV 10/20/24 19:15 Infused STAT ONE Infusion Ceftriaxone Sodium Confirm 10/20/24 19:56 Rocephin 1 Gm / 100 Ml Nacl Administered 10/20/24 19:57 Dose 1 gm in 100 mls @ ud IV .STK-MED ONE Sodium Chloride 1,000 mls @ 125 mls/hr 10/20/24 21:30 10/21/24 05:38 Sodium Chloride 0.9% 1000 Ml IV 11/19/24 21:29 125 mls/hr .Q8H EVELIN Administration Ondansetron HCl 4 mg 10/20/24 17:36 10/20/24 18:30 Ondansetron Hcl 4 Mg/2 Ml Vial IV 10/20/24 17:37 4 mg STAT ONE Administration Ondansetron HCl Confirm 10/20/24 18:25 Ondansetron Hcl 4 Mg/2 Ml Vial Administered 10/20/24 18:26 Dose 4 mg .ROUTE .STK-MED ONE Pantoprazole Sodium 40 mg 10/20/24 17:36 10/20/24 18:32 Pantoprazole 40 Mg Vial IV 10/20/24 17:37 40 mg STAT ONE Administration Pantoprazole Sodium Confirm 10/20/24 18:26 Pantoprazole 40 Mg Vial Administered 10/20/24 18:27 Dose 40 mg IV .STK-MED ONE Assessment/Plan (1) Small bowel obstruction Current Visit: Yes Status: Acute Assessment & Plan: - GS consult - NPO - IVF - Pain improved today - CT Abd/Pelvis: 1. Dilated jejunal bowel loops, showing multiple air fluid levels, no signs of ischemia at the time of examination. Features of acute small bowel obstruction. 2. Multiple small gallstones, averaging 3 mm. No signs of acute cholecystitis. - CBC, CMP reviewed - Leukocytosis resolved - Dilaudid for pain IV - Zofran for nausea PRN Code(s): K56.609 - UNSP INTESTNL OBST, UNSP TO PARTIAL VERSUS COMPLETE OBST (2) Dehydration Current Visit: Yes Status: Acute Assessment & Plan: - IVF - Anion gap 12.2- ok - + acute on chronic renal failure Code(s): E86.0 - DEHYDRATION (3) Urinary tract infection Current Visit: Yes Status: Acute Assessment & Plan: - Ceftriaxone - Hx BPH - UC gram negative- sensitivity pending Code(s): N39.0 - URINARY TRACT INFECTION, SITE NOT SPECIFIED (4) Acute on chronic renal failure Current Visit: Yes Status: Acute Assessment & Plan: - Creat 1.60- Baseline 1.45 - IVF- changed to IVF with D5 this AM as glucose 71 Code(s): N17.9 - ACUTE KIDNEY FAILURE, UNSPECIFIED; N18.9 - CHRONIC KIDNEY DISEASE, UNSPECIFIED (5) Hypertensive chronic kidney disease with stage 1 through stage 4 chronic kidney disease, or unspecified chronic kidney disease Current Visit: Yes Status: Chronic Assessment & Plan: - BP stable continue home meds Code(s): I12.9 - HYPERTENSIVE CHRONIC KIDNEY DISEASE W STG 1-4/UNSP CHR KDNY (6) Colovesical fistula Current Visit: Yes Status: Resolved Assessment & Plan: - Status post partial colectomy in the past VTE: LOvenox PPI: Protonix Next of KIN: friend- Leslie Robins [phone] D/C plan: 1-2 days Code status: Full Code(s): N32.1 - VESICOINTESTINAL FISTULA
[2024-10-21] MEDS ORDERED: MEDICATION INTERVENTION MC SCH (09:00)
[2024-10-21] MEDS: MYSOLINE 50MG PO SCH (09:22)
[2024-10-21] MEDS: Vitamin B-12 500 MCG PO SCH (09:22)
[2024-10-21] MEDS: ECOTRIN 81 MG PO SCH (09:22)
[2024-10-21] MEDS: ZOCOR 20MG PO SCH (09:22)
[2024-10-21] MEDS: Protonix 40MG Tablet PO SCH (09:23)
[2024-10-21] MEDS: SYNTHROID 50 MCG PO SCH (09:23)
[2024-10-21] MEDS: Flomax 0.4 MG PO SCH (09:23)
[2024-10-21] MEDS: FEOSOL 325 MG PO SCH (09:23)
[2024-10-21] MEDS: ENOXAPARIN SODIUM SQ SCH (09:24)
[2024-10-21] MEDS: NORVASC 5 MG PO SCH (09:27)
[2024-10-21] MEDS: Lopressor 25MG Tab PO SCH (09:27)
[2024-10-21] MEDS: ROCEPHIN 1 GM / 100 ML NaCl 1 GM/100 ML IVPB IV SCH (09:28)
[2024-10-21] MEDS ORDERED: NON-FORMULARY ITEM (Amlodipine Besylate [Norvasc] 2.5 MG Tablet) PO SCH (10:00)
[2024-10-21] MEDS ORDERED: NON-FORMULARY ITEM (Aspirin [Aspirin] 81 MG Tablet) PO SCH (10:00)
[2024-10-21] MEDS ORDERED: NON-FORMULARY ITEM (Fluticasone/Vilanterol [Breo Ellipta 100-25 Mcg Inhalr] 1 EACH Blst.W. PO SCH (10:00)
[2024-10-21] MEDS ORDERED: Protonix 20MG Tablet PO SCH (10:00)
[2024-10-21] MEDS ORDERED: NON-FORMULARY ITEM (Lansoprazole [Lansoprazole] 30 MG Capsule.Dr) PO SCH (10:00)
[2024-10-21] MEDS ORDERED: NON-FORMULARY ITEM (Cyanocobalamin (Vitamin B-12) [Vitamin B-12] 1,000 MCG Tablet) PO SCH (10:00)
[2024-10-21] MEDS ORDERED: NON-FORMULARY ITEM (Pravastatin Sodium [Pravastatin Sodium] 40 MG Tablet) PO SCH (10:00)
--- NOTE | 2024-10-21 15:43 | XRAY ---
CLINICAL HISTORY: abd pain COMPARISON: CT dated 10/20/2024 TECHNIQUE: X-ray images of the abdomen were obtained in AP position. FINDINGS: Gas Pattern: The second part of the duodenum is filled with contrast, with faint contrast seen at the third part. Mildly dilated gas-filled small bowel loops in the left upper quadrant. The right-sided colon shows mild gas distension. There is no free air or contrast identified. Soft Tissues: Apart from pelvic phleboliths, the soft tissues of the abdomen show no evidence of masses or calcifications. Bone: Left hip replacement is seen with no features of hardware failure. Right femur head sclerotic changes with lucencies and preserved femur head contour, possible AVN changes to be excluded. Scoliotic changes of the lumbar spine IMPRESSION: 1. The second part of the duodenum is filled with oral contrast, with faint contrast seen at the third part. (New finding, likely due to contrast-enhanced radiological examination) 2. Mildly dilated gas-filled small bowel loops in the left upper quadrant. Overall, shows interval regression compared to the prior CT examination. 3. There is no free air or contrast identified. (unchanged) Electronically Signed by: Enoc Gan MD. (10/21/2024 15:40:32 EDT)
--- NOTE | 2024-10-21 19:33 | XRAY ---
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 FINDINGS: Gas Pattern: The second part of the duodenum is more prominent and filled with contrasts well as the third part. The contrast is still not seen within the dilated left jejunal loops The right-sided colon shows mild gas distension. There is no free air or contrast identified. The rest of the findings are the same Left-sided total hip replacement. IMPRESSION: - There is a progressive dilatation of the duodenum with oral gastrografin - The contrast is still not seen within the dilated left jejunal loops - No free air. Electronically Signed by: Enoc Gan MD. (10/21/2024 19:29:14 EDT)
[2024-10-21] MEDS: Zofran 4 MG/2 ML VIAL IV PRN (21:23)
[2024-10-22] MEDS: Compazine 10 MG/2 ML IV PRN (00:44)
[2024-10-22 04:48] LABS: Glucose 116.0 mg/dL (74-106)
[2024-10-22 04:49] LABS: Calcium 9.5 mg/dL (8.4-10.2); Carbon Dioxide 25.0 mmol/L (22-30); Creatinine 1 1.45 mg/dL (0.66-1.25); EST GLOMERULAR FILTRATION RATE 49.6 ML/MIN; Potassium 4.2 mmol/L (3.5-5.1); SGOT/AST 19.0 U/L (17-59); SGPT/ALT 9.0 U/L (0-50); Total Protein 6.9 g/dL (6.3-8.2)
[2024-10-22 04:54] LABS: Hematocrit 43.1 % (40.1-51.0); Hemoglobin 14.5 g/dL (13.7-17.5); Mean Corpuscular Hemoglobin 31.4 pg (25.7-32.2); Mean Corpuscular Hgb Concent. 33.6 g/dL (32.3-36.5); Platelet Count 155 x10^3/uL (163-337); Red Blood Count 4.62 x10^6/uL (4.63-6.08); White Blood Count 7.9 x10^3/uL (4.23-9.07)
--- NOTE | 2024-10-22 05:17 | PCM.NOTE ---
Date and Time: 10/22/24 0512 Subjective Assessment: Mr. Lan is a 79-year-old male with a PMXH of HTN, HLD, CKD, colovesical fistula status post colectomy, who presented 10/20/24 with a three-day history of nausea, abdominal pain, and multiple episodes of non-bloody, non-bilious emesis. On arrival, he appeared clinically volume-depleted but hemodynamically stable. A CT abdomen/pelvis showed dilated jejunal loops with air-fluid levels, consistent with a small bowel obstruction, without signs of ischemia or perforation. No acute cholecystitis was noted, though incidental cholelithiasis was present. He was initiated on IV fluids, pain control, and Ceftriaxone for a concurrent urinary tract infection, with urine culture showing gram-negative organisms and culture pending sensistivity. His creatinine was elevated at 1.8 on admission, slightly above his known baseline of 1.5, now improving with resuscitation. As of hospital day two, his abdominal pain is better controlled,complaints of nauseas remain- patient declines NG placement, and he is tolerating conservative management. Surgery has been consulted and KUB series w/co ordered, patient to remain NPO. 10/22/24: Met with patient bedside. Endorses nausea and vomiting overnight. No bowel movement yet, but passing gas. Bowel sounds are present but hypoactive. Abdomen is tender on exam, though not distended. Discussed placing an NG tube, and the patient is now on board with the plan. Latest KUB shows mildly dilated, gas- filled small bowel loops in the left upper quadrant, but less than on the previous film. No free air. Plan is to continue serial KUBs per surgerys recommendation, keep IV fluids going, and continue treating the UTI. Antibiotics have been changed to renally dosed Levaquin to cover pseudomonas resulted on culture. - Review of Systems Constitutional: No Symptoms Eyes: No Symptoms Ears, Nose, & Throat: No Symptoms Respiratory: No Symptoms Cardiac: No Symptoms Abdominal/Gastrointestinal: Abdominal Pain, Nausea, Vomiting Genitourinary Symptoms: No Symptoms Musculoskeletal: No Symptoms Skin: No Symptoms Neurological: No Symptoms Psychological: No Symptoms Endocrine: No Symptoms Hematologic/Lymphatic: No Symptoms Immunological/Allergic: No Symptoms Objective Exam General Appearance: no apparent distress Neurologic Exam: alert, oriented x 3, cooperative Skin Exam: normal color Eye Exam: PERRL Ears, Nose, Throat Exam: normal ENT inspection Neck Exam: normal inspection Respiratory Exam: normal breath sounds, lungs clear Cardiovascular Exam: regular rate/rhythm, normal heart sounds Gastrointestinal/Abdomen Exam: soft, tenderness, other (Hypoactive BS x 4 quads) Extremity Exam: normal inspection Back Exam: normal inspection Male Genitalia Exam: deferred Rectal Exam: deferred Objective Data Vital Signs: Vital Signs - 24 hr Temp Pulse Resp BP Pulse Ox 10/22/24 03:48 98.8 F 94 H 16 131/74 94 L 10/21/24 23:58 99.2 F 88 18 125/67 94 L 10/21/24 19:40 98.3 F 82 16 130/66 92 L 10/21/24 16:08 98.1 F 65 16 121/63 92 L 10/21/24 11:16 97.7 F 66 16 126/73 95 10/21/24 09:17 68 104/56 10/21/24 07:13 97.7 F 69 16 99/51 93 L Pain Assessment - Last Documented Pain Intensity 0 Pain Scale Used 0-10 Pain Scale Intake and Output: Intake & Output 10/19/24 10/20/24 10/21/24 10/22/24 11:59 11:59 11:59 11:59 Intake Total 1966 1964 Balance 1966 1964 Weight 62.7 kg Lab Results: Lab Results-Last 24 Hours 10/21/24 10/21/24 10/22/24 Range/Units 05:16 05:16 04:20 WBC 7.3 7.9 (4.23-9.07) x10^3/uL RBC 4.54 L 4.62 L (4.63-6.08) x10^6/uL Hgb 14.2 14.5 (13.7-17.5) g/dL Hct 43.0 43.1 (40.1-51.0) % MCV 94.7 H 93.3 H (79.0-92.2) fL MCH 31.3 31.4 (25.7-32.2) pg MCHC 33.0 33.6 (32.3-36.5) g/dL RDW 13.2 13.2 (11.6-14.4) % Plt Count 144 L 155 L (163-337) x10^3/uL MPV 9.2 L 9.8 (9.4-12.4) fL Gran % 53.9 (34.0-67.9) % Immature Gran % (Auto) 0.1 (0.001-0.429) % Nucleat RBC Rel Count 0.0 (0.00-0.2) % Eos # (Auto) 0.84 H (0.04-0.54) x10^3/uL Immature Gran # (Auto) 0.01 (0.001-0.031) x10^3u/L Absolute Lymphs (auto) 1.62 (1.32-3.57) x10^3/uL Absolute Monos (auto) 0.85 H (0.30-0.82) x10^3/uL Absolute Nucleated RBC 0.00 (0.00-0.012) x10^3u/L Lymphocytes % 22.1 (21.8-53.1) % Monocytes % 11.6 (5.3-12.2) % Eosinophils % 11.5 H (0.8-7.0) % Basophils % 0.8 (0.2-1.2) % Absolute Granulocytes 3.95 (1.78-5.38) x10^3/uL Basophils # 0.06 (0.01-0.08) x10^3/uL Sodium 137 (135-145) mmol/L Potassium 4.9 (3.5-5.1) mmol/L Chloride 104 (98-107) mmol/L Carbon Dioxide 25 (22-30) mmol/L Anion Gap 12.2 (5-15) MEQ/L BUN 33 H (9-20) mg/dL Creatinine 1.60 H (0.66-1.25) mg/dL Estimated GFR 44.1 ML/MIN Glucose 71 L (74-106) mg/dL Calcium 8.7 (8.4-10.2) mg/dL Magnesium 1.7 (1.6-2.3) mg/dL Total Bilirubin 0.50 (0.2-1.3) mg/dL AST 17 (17-59) U/L ALT 7 (0-50) U/L Alkaline Phosphatase 98 (38-126) U/L Serum Total Protein 5.7 L (6.3-8.2) g/dL Albumin 3.4 L (3.5-5.0) g/dL 07/21/25 Range/Units 04:20 WBC (4.23-9.07) x10^3/uL RBC (4.63-6.08) x10^6/uL Hgb (13.7-17.5) g/dL Hct (40.1-51.0) % MCV (79.0-92.2) fL MCH (25.7-32.2) pg MCHC (32.3-36.5) g/dL RDW (11.6-14.4) % Plt Count (163-337) x10^3/uL MPV (9.4-12.4) fL Gran % (34.0-67.9) % Immature Gran % (Auto) (0.001-0.429) % Nucleat RBC Rel Count (0.00-0.2) % Eos # (Auto) (0.04-0.54) x10^3/uL Immature Gran # (Auto) (0.001-0.031) x10^3u/L Absolute Lymphs (auto) (1.32-3.57) x10^3/uL Absolute Monos (auto) (0.30-0.82) x10^3/uL Absolute Nucleated RBC (0.00-0.012) x10^3u/L Lymphocytes % (21.8-53.1) % Monocytes % (5.3-12.2) % Eosinophils % (0.8-7.0) % Basophils % (0.2-1.2) % Absolute Granulocytes (1.78-5.38) x10^3/uL Basophils # (0.01-0.08) x10^3/uL Sodium 138 (135-145) mmol/L Potassium 4.2 (3.5-5.1) mmol/L Chloride 103 (98-107) mmol/L Carbon Dioxide 25 (22-30) mmol/L Anion Gap 14.2 (5-15) MEQ/L BUN 24 H (9-20) mg/dL Creatinine 1.45 H (0.66-1.25) mg/dL Estimated GFR 49.6 ML/MIN Glucose 116 H (74-106) mg/dL Calcium 9.5 (8.4-10.2) mg/dL Magnesium (1.6-2.3) mg/dL Total Bilirubin 0.50 (0.2-1.3) mg/dL AST 19 (17-59) U/L ALT 9 (0-50) U/L Alkaline Phosphatase 104 (38-126) U/L Serum Total Protein 6.9 (6.3-8.2) g/dL Albumin 4.1 (3.5-5.0) g/dL Radiology Exams: Radiology Procedures Category Date Time Status ABDOMEN AND PELVIS W/0 CONTRAS [CT] Stat Exams 10/20/24 17:37 Completed KUB Stat Exams 10/21/24 14:12 Completed KUB Urgent Exams 10/21/24 18:06 Completed KUB Urgent Exams 10/22/24 00:01 Ordered KUB Urgent Exams 10/22/24 12:00 Ordered Medications: Medications Generic Name Dose Route Start Last Admin Trade Name Freq PRN Reason Stop Dose Admin Acetaminophen 650 mg 10/20/24 21:26 10/20/24 22:15 Acetaminophen 325 Mg Tablet PO 11/19/24 21:25 650 mg Q4H PRN PRN Administration PAIN, FEVER, HEADACHE Amlodipine Besylate 2.5 mg 10/21/24 10:00 10/21/24 09:27 Amlodipine Besylate 5 Mg Tablet PO 11/20/24 09:59 Not Given DAILY EVELIN Aspirin 81 mg 10/21/24 10:00 10/21/24 09:22 Aspirin 81 Mg Tablet.Ec PO 11/20/24 09:59 81 mg DAILY EVELIN Administration Cyanocobalamin 2,500 mcg 10/21/24 10:00 10/21/24 09:22 Cyanocobalamin 500 Mcg Tablet PO 11/20/24 09:59 2,500 mcg DAILY EVELIN Administration Enoxaparin Sodium 40 mg 10/21/24 10:00 10/21/24 09:24 Enoxaparin Sodium 40 Mg/0.4 Ml Syringe SQ 11/20/24 09:59 40 mg DAILY EVELIN Administration Ferrous Sulfate 325 mg 10/21/24 10:00 10/21/24 09:23 Ferrous Sulfate 325 Mg Tablet PO 11/20/24 09:59 325 mg DAILY EVELIN Administration Gabapentin 100 mg 10/21/24 10:00 10/21/24 09:23 Gabapentin 100 Mg Capsule PO 11/20/24 09:59 100 mg DAILY EVELIN Administration Hydromorphone HCl 1 mg 10/20/24 22:54 10/21/24 18:05 Hydromorphone 1 Mg/1ml Inj IV 10/25/24 22:53 1 mg Q4H PRN PRN Administration PAIN Ceftriaxone Sodium 1 gm in 100 mls @ 200 mls/hr 10/21/24 10:00 10/21/24 09:28 Rocephin 1 Gm / 100 Ml Nacl IV 11/20/24 09:59 200 mls/hr Q24H10 EVELIN Administration Dextrose/Sodium Chloride 1,000 mls @ 75 mls/hr 10/21/24 08:00 10/21/24 23:57 Dextrose 5%-Ns Iv Solution 1000 Ml IV 11/20/24 07:59 75 mls/hr .[id number] EVELIN Administration Levothyroxine Sodium 50 mcg 10/21/24 10:00 10/21/24 09:23 Levothyroxine Sodium 50 Mcg Tablet PO 11/20/24 09:59 50 mcg DAILY EVELIN Administration Metoprolol Tartrate 25 mg 10/21/24 10:00 10/21/24 21:02 Metoprolol Tartrate 25 Mg Tab PO 11/20/24 09:59 25 mg BID EVELIN Administration Miscellaneous Information 1 each 10/21/24 09:00 Medication Intervention 1 Each Each 11/20/24 08:59 .RN TO CHECK EVELIN Ondansetron HCl 4 mg 10/20/24 21:26 10/22/24 03:38 Ondansetron Hcl 4 Mg/2 Ml Vial IV 11/19/24 21:25 4 mg Q6H PRN PRN Administration NAUSEA/VOMITING Pantoprazole Sodium 40 mg 10/21/24 10:00 10/21/24 09:23 Protonix (Pantoprazole) 40 Mg Tablet PO 11/20/24 09:59 40 mg DAILY EVELIN Administration Primidone 50 mg 10/21/24 10:00 10/21/24 09:22 Primidone 50 Mg Tablet PO 11/20/24 09:59 50 mg DAILY EVELIN Administration Prochlorperazine Edisylate 10 mg 10/22/24 00:40 10/22/24 00:44 Prochlorperazine Edisylate 10 Mg/2 Ml Vial IV 11/21/24 00:39 10 mg Q8H PRN PRN Administration NAUSEA/VOMITING Simvastatin 40 mg 10/21/24 10:00 10/21/24 09:22 Simvastatin 20 Mg Tablet PO 11/20/24 09:59 40 mg DAILY EVELIN Administration Tamsulosin HCl 0.4 mg 10/21/24 10:00 10/21/24 09:23 Tamsulosin Hcl 0.4 Mg Cap PO 11/20/24 09:59 0.4 mg DAILY EVELIN Administration Discontinued Medications Generic Name Dose Route Start Last Admin Trade Name Freq PRN Reason Stop Dose Admin Hydromorphone HCl 0.5 mg 10/20/24 17:36 10/20/24 18:34 Hydromorphone 1 Mg/1ml Inj IV 10/20/24 17:37 0.5 mg STAT ONE Administration Hydromorphone HCl Confirm 10/20/24 18:26 Hydromorphone 1 Mg/1ml Inj Administered 10/20/24 18:27 Dose 1 mg .ROUTE .STK-MED ONE Sodium Chloride 1,000 mls @ 999 mls/hr 10/20/24 17:36 10/20/24 20:07 Sodium Chloride 0.9% 1000 Ml IV 10/20/24 18:36 Infused .Q1H1M STA Infusion Sodium Chloride Confirm 10/20/24 18:27 Sodium Chloride 0.9% 1000 Ml Administered 10/20/24 18:28 Dose 1,000 mls @ ud .ROUTE .STK-MED ONE Ceftriaxone Sodium 1 gm in 100 mls @ 200 mls/hr 10/20/24 18:46 10/20/24 20:35 Rocephin 1 Gm / 100 Ml Nacl IV 10/20/24 19:15 Infused STAT ONE Infusion Ceftriaxone Sodium Confirm 10/20/24 19:56 Rocephin 1 Gm / 100 Ml Nacl Administered 10/20/24 19:57 Dose 1 gm in 100 mls @ ud IV .STK-MED ONE Sodium Chloride 1,000 mls @ 125 mls/hr 10/20/24 21:30 10/21/24 05:38 Sodium Chloride 0.9% 1000 Ml IV 11/19/24 21:29 125 mls/hr .Q8H EVELIN Administration Metoprolol Tartrate 5 mg 10/20/24 23:00 10/21/24 04:07 Metoprolol Tartrate 5 Mg/5 Ml Vial IV 11/19/24 22:59 5 mg Q6H EVELIN Administration Ondansetron HCl 4 mg 10/20/24 17:36 10/20/24 18:30 Ondansetron Hcl 4 Mg/2 Ml Vial IV 10/20/24 17:37 4 mg STAT ONE Administration Ondansetron HCl Confirm 10/20/24 18:25 Ondansetron Hcl 4 Mg/2 Ml Vial Administered 10/20/24 18:26 Dose 4 mg .ROUTE .STK-MED ONE Pantoprazole Sodium 40 mg 10/20/24 17:36 10/20/24 18:32 Pantoprazole 40 Mg Vial IV 10/20/24 17:37 40 mg STAT ONE Administration Pantoprazole Sodium Confirm 10/20/24 18:26 Pantoprazole 40 Mg Vial Administered 10/20/24 18:27 Dose 40 mg IV .STK-MED ONE Assessment/Plan (1) Small bowel obstruction Current Visit: Yes Status: Acute Assessment & Plan: -CT A/P: Dilated jejunal loops, multiple air-fluid levels, no signs of ischemia or perforation -WBC normalized at 7.9, no leukocytosis, no lactic acidosis -NPO, IVF, IV Dilaudid for pain, Zofran/compazine PRN for nausea -General surgery consulted and note reviewed with recommendations for KUB series w/ contrast - most recent KUB performed 10/22 showing mildly dilated, gas-filled small bowel loops in the left upper belly area less prominent than on the previous exam. No free air is seen. -NG placed to LIS - CXR to confirm placement pending Code(s): K56.609 - UNSP INTESTNL OBST, UNSP TO PARTIAL VERSUS COMPLETE OBST (2) Acute on chronic renal failure Current Visit: Yes Status: Acute Assessment & Plan: -Admission creatinine 1.8, baseline 1.6; now improving with hydration at 1.45- trend -Likely prerenal due to volume depletion in the setting of SBO and UTI -Continue IVF, switched to D5-containing fluids due to glucose 71; monitor renal function daily Code(s): N17.9 - ACUTE KIDNEY FAILURE, UNSPECIFIED; N18.9 - CHRONIC KIDNEY DISEASE, UNSPECIFIED (3) Dehydration Current Visit: Yes Status: Acute Assessment & Plan: -Likely multifactorial due to vomiting, poor oral intake, and baseline CKD -BUN/Cr elevated, AG 12.2, glucose 71 -Continue IV fluids; currently receiving IVF with D5 due to borderline hypoglycemia Code(s): E86.0 - DEHYDRATION (4) Urinary tract infection Current Visit: Yes Status: Acute Assessment & Plan: -Urine culture with pseudomonas- ceftriaxone discontinued- levaquin started IV due to SBO - renally dosed Code(s): N39.0 - URINARY TRACT INFECTION, SITE NOT SPECIFIED (5) Hypertensive chronic kidney disease with stage 1 through stage 4 chronic kidney disease, or unspecified chronic kidney disease Current Visit: Yes Status: Chronic Assessment & Plan: -Chronic diagnosis -BP currently controlled without need for escalation -Continue home antihypertensives Code(s): I12.9 - HYPERTENSIVE CHRONIC KIDNEY DISEASE W STG 1-4/UNSP CHR KDNY (6) Colovesical fistula Current Visit: Yes Status: Resolved Assessment & Plan: -Status post partial colectomy VTE: Lovenox PPI: Protonix Next of KIN: friend- Leslie Robins [phone] D/C plan: 1-2 days Code status: Full Code(s): N32.1 - VESICOINTESTINAL FISTULA
--- NOTE | 2024-10-22 06:08 | PCM.CONS ---
History of Present Illness - Reason for Consult Chief Complaint: sbo Date of Consultation Date: 10/21/24 (Consult performed at ~1130 on 10/21 (late entry)) Reason for Consult: sbo Requesting Provider: PILO FLORIAN MD Consulting Provider: BENITEZ GREGORY MD History of Present Illness: is a 79 year old male. Pt presented to the ED after two days of nausea/vomiting and abdominal pain. Pt states that he has not passed gas or had any BMs for three days. CT was performed on presentation and showed SBO w/ dilated jejunal loops. Pt states that he feels better since presentation yesterday, but he has still not passed gas. He is still having mid to lower abdominal pain, but his nausea has resolved. He was started on clear liquids by primary team earlier today. Denies fevers, chills, CP, SOB. - Review of Systems Constitutional: Other All Other Systems: Reviewed and Negative (Negative excet as mentioned in HPI) Medications & Allergies Home Medications: Home Medication List Amlodipine Besylate [Norvasc] 2.5 mg PO DAILY 10/20/24 [History Confirmed 10/20/24] Aspirin 81 mg PO DAILY 10/20/24 [History Confirmed 10/20/24] Cyanocobalamin (Vitamin B-12) [Vitamin B-12] 2,500 mcg PO DAILY 10/20/24 [History Confirmed 10/20/24] Ferrous Sulfate [Iron] 325 mg PO DAILY 10/20/24 [History Confirmed 10/20/24] Fluticasone/Vilanterol [Breo Ellipta 100-25 Mcg Inhalr] 1 inh PO DAILY 10/20/24 [History Confirmed 10/20/24] Gabapentin [Neurontin ] 100 mg PO DAILY 10/20/24 [History Confirmed 10/20/24] Lansoprazole 30 mg PO DAILY 10/20/24 [History Confirmed 10/20/24] Levothyroxine Sodium 50 Mcg [Synthroid 50 Mcg] 50 mcg PO DAILY 10/20/24 [History Confirmed 10/20/24] Metoprolol Tartrate 25 mg [Lopressor 25MG Tab] 25 mg PO BID 10/20/24 [History Confirmed 10/20/24] Pravastatin Sodium 40 mg PO DAILY 10/20/24 [History Confirmed 10/20/24] Primidone 50 MG [Mysoline 50Mg] 50 mg PO DAILY 10/20/24 [History Confirmed 10/20/24] Tamsulosin HCl [Flomax] 0.4 mg PO DAILY 10/20/24 [History Confirmed 10/20/24] Allergies/Adverse Reactions: Allergies Allergy/AdvReac Type Severity Reaction Status Date / Time No Known Drug Allergies Allergy Verified 10/20/24 17:41 - Past Medical History Past Medical History: Yes Cardiac History: Arrhythmia, Hypertension Respiratory History: COPD, Pneumonia Endocrine Medical History: Hypothyroidism GI Medical History: Other History: Renal Disease - Past Surgical History Past Surgical History: Yes Cardiac History: No Pertinent History Respiratory Surgery: No Pertinent History GI Surgical History: Colon Resection Genitourinary Surgical Hx: No Pertinent History Musculskeletal Surgical Hx: Joint Replacement Male Surgical History: No Pertinent History Other Surgical History: left hip - Social History Smoking Status: Never smoker Exposure to second hand smoke: No Alcohol: None Drug Use: none - Social Determinants of Health Will the patient participate in the screening: Yes Do you worry about a steady place to live?: Yes Do you have any problems with any of the following?: No known problems In the past 12 months,have you had to go without utilities?: No Have you or anyone in your house had to go without enough: No Transportation Issues: No Has anyone in your support network made you feel unsafe?: No Does the patient want assistance with any of the above?: No - Physical Exam Vital Signs: Vital Signs - 24 hr Temp Pulse Resp BP Pulse Ox 10/22/24 03:48 98.8 F 94 H 16 131/74 94 L 10/21/24 23:58 99.2 F 88 18 125/67 94 L 10/21/24 19:40 98.3 F 82 16 130/66 92 L 10/21/24 16:08 98.1 F 65 16 121/63 92 L 10/21/24 11:16 97.7 F 66 16 126/73 95 10/21/24 09:17 68 104/56 10/21/24 07:13 97.7 F 69 16 99/51 93 L General Appearance: no apparent distress Neurologic Exam: alert, oriented x 3, cooperative Respiratory Exam: No respiratory distress Cardiovascular Exam: regular rate/rhythm Gastrointestinal/Abdomen Exam: tenderness (mild diffuse TTP), distention (mildly distended) Results - Labs Lab/Micro Results: Lab Results-Last 24 Hours 10/21/24 10/21/24 10/22/24 Range/Units 05:16 05:16 04:20 WBC 7.3 7.9 (4.23-9.07) x10^3/uL RBC 4.54 L 4.62 L (4.63-6.08) x10^6/uL Hgb 14.2 14.5 (13.7-17.5) g/dL Hct 43.0 43.1 (40.1-51.0) % MCV 94.7 H 93.3 H (79.0-92.2) fL MCH 31.3 31.4 (25.7-32.2) pg MCHC 33.0 33.6 (32.3-36.5) g/dL RDW 13.2 13.2 (11.6-14.4) % Plt Count 144 L 155 L (163-337) x10^3/uL MPV 9.2 L 9.8 (9.4-12.4) fL Gran % 53.9 (34.0-67.9) % Immature Gran % (Auto) 0.1 (0.001-0.429) % Nucleat RBC Rel Count 0.0 (0.00-0.2) % Eos # (Auto) 0.84 H (0.04-0.54) x10^3/uL Immature Gran # (Auto) 0.01 (0.001-0.031) x10^3u/L Absolute Lymphs (auto) 1.62 (1.32-3.57) x10^3/uL Absolute Monos (auto) 0.85 H (0.30-0.82) x10^3/uL Absolute Nucleated RBC 0.00 (0.00-0.012) x10^3u/L Lymphocytes % 22.1 (21.8-53.1) % Monocytes % 11.6 (5.3-12.2) % Eosinophils % 11.5 H (0.8-7.0) % Basophils % 0.8 (0.2-1.2) % Absolute Granulocytes 3.95 (1.78-5.38) x10^3/uL Basophils # 0.06 (0.01-0.08) x10^3/uL Sodium 137 (135-145) mmol/L Potassium 4.9 (3.5-5.1) mmol/L Chloride 104 (98-107) mmol/L Carbon Dioxide 25 (22-30) mmol/L Anion Gap 12.2 (5-15) MEQ/L BUN 33 H (9-20) mg/dL Creatinine 1.60 H (0.66-1.25) mg/dL Estimated GFR 44.1 ML/MIN Glucose 71 L (74-106) mg/dL Calcium 8.7 (8.4-10.2) mg/dL Magnesium 1.7 (1.6-2.3) mg/dL Total Bilirubin 0.50 (0.2-1.3) mg/dL AST 17 (17-59) U/L ALT 7 (0-50) U/L Alkaline Phosphatase 98 (38-126) U/L Serum Total Protein 5.7 L (6.3-8.2) g/dL Albumin 3.4 L (3.5-5.0) g/dL 10/22/24 Range/Units 04:20 WBC (4.23-9.07) x10^3/uL RBC (4.63-6.08) x10^6/uL Hgb (13.7-17.5) g/dL Hct (40.1-51.0) % MCV (79.0-92.2) fL MCH (25.7-32.2) pg MCHC (32.3-36.5) g/dL RDW (11.6-14.4) % Plt Count (163-337) x10^3/uL MPV (9.4-12.4) fL Gran % (34.0-67.9) % Immature Gran % (Auto) (0.001-0.429) % Nucleat RBC Rel Count (0.00-0.2) % Eos # (Auto) (0.04-0.54) x10^3/uL Immature Gran # (Auto) (0.001-0.031) x10^3u/L Absolute Lymphs (auto) (1.32-3.57) x10^3/uL Absolute Monos (auto) (0.30-0.82) x10^3/uL Absolute Nucleated RBC (0.00-0.012) x10^3u/L Lymphocytes % (21.8-53.1) % Monocytes % (5.3-12.2) % Eosinophils % (0.8-7.0) % Basophils % (0.2-1.2) % Absolute Granulocytes (1.78-5.38) x10^3/uL Basophils # (0.01-0.08) x10^3/uL Sodium 138 (135-145) mmol/L Potassium 4.2 (3.5-5.1) mmol/L Chloride 103 (98-107) mmol/L Carbon Dioxide 25 (22-30) mmol/L Anion Gap 14.2 (5-15) MEQ/L BUN 24 H (9-20) mg/dL Creatinine 1.45 H (0.66-1.25) mg/dL Estimated GFR 49.6 ML/MIN Glucose 116 H (74-106) mg/dL Calcium 9.5 (8.4-10.2) mg/dL Magnesium (1.6-2.3) mg/dL Total Bilirubin 0.50 (0.2-1.3) mg/dL AST 19 (17-59) U/L ALT 9 (0-50) U/L Alkaline Phosphatase 104 (38-126) U/L Serum Total Protein 6.9 (6.3-8.2) g/dL Albumin 4.1 (3.5-5.0) g/dL Microbiology 10/20/24 17:52 Urine Culture - Preliminary Urine, Void GRAM NEGATIVE ID AND SENSITIVITY PENDING - Radiology Impressions Radiology Exams & Impressions: Radiology Procedures Category Date Time Status ABDOMEN AND PELVIS W/0 CONTRAS [CT] Stat Exams 10/20/24 17:37 Completed KUB Stat Exams 10/21/24 14:12 Completed KUB Stat Exams 10/22/24 00:01 Ordered KUB Urgent Exams 10/21/24 18:06 Completed KUB Urgent Exams 10/22/24 12:00 Ordered Assessment/Plan (1) Small bowel obstruction Current Visit: Yes Status: Acute Assessment & Plan: Pt presenting with SBO. Pt to be NPO. As he has had no vomiting and is refusing will hold off on NG tube for now. If pt starts to have nausea or vomiting, NG tube should be placed. Will plan for contrast administration with serial abdominal exams and KUBs to monitor progression of contrast (100mL gastrografin/50mL water mix with i mmediate, 4hr, 12hr, and 24hr xrays to monitor for progression of contrast as formal SBFT not available over the weekend). Discussed reasoning for NG tube placement with the patient, but he would like to hold off. Contrast may be therapeutic/diagnostic, but if it fails to pass into the colon pt may need surgical intervention for his SBO. For now continue IV fluids, pain management PRN, monitoring of abd exam. Benitez Gregory MD-[facility] General Surgery [facility] Code(s): K56.609 - UNSP INTESTNL OBST, UNSP TO PARTIAL VERSUS COMPLETE OBST
--- NOTE | 2024-10-22 07:29 | XRAY ---
CLINICAL HISTORY: abd pain COMPARISON: 10/21/2024 16:17:43 ANALYTICAL LEAD TECHNIQUE: X-ray images of the abdomen were obtained in AP position. FINDINGS: Gas Pattern: Mildly dilated gas-filled small bowel loops in the left upper quadrant. There is no free air or contrast identified. The rest of the findings are the same Left-sided total hip replacement. IMPRESSION: Mildly dilated gas-filled small bowel loops in the left upper quadrant. -reduced compared to prior study No free air. Electronically Signed by: Lester Triplett MD. (10/22/2024 07:26:07 EDT)
[2024-10-22] MEDS: Levofloxacin 500MG/100ML D5W 500 MG/100 ML BAG IV ONE (09:11)
[2024-10-22] MEDS: Ativan 2 MG/1 ML VIAL IV ONE (09:24)
--- NOTE | 2024-10-22 10:23 | XRAY ---
Indication: NG placement. Comparison: None Portable chest demonstrates NG tube traversing chest with tip in stomach. Remaining chest demonstrates minimal left base infiltrate/atelectasis. Heart not enlarged. Bony thorax intact with osteopenia and mild degenerative changes.
[2024-10-23 04:51] LABS: BASOPHIL % 0.7 % (0.2-1.2); Basophil (Absolute #) 0.05 x10^3/uL (0.01-0.08); Eosinophil (Absolute #) 0.81 x10^3/uL (0.04-0.54); Hematocrit 40.8 % (40.1-51.0); Hemoglobin 13.8 g/dL (13.7-17.5); IMMATURE GRAN # 0.01 x10^3u/L (0.001-0.031); IMMATURE GRAN % 0.1 % (0.001-0.429); Lymphocyte (Absolute #) 0.92 x10^3/uL (1.32-3.57); Mean Corpuscular Hemoglobin 31.0 pg (25.7-32.2); Mean Corpuscular Hgb Concent. 33.8 g/dL (32.3-36.5); Monocyte (Absolute #) 0.64 x10^3/uL (0.30-0.82); NUCLEATED RBC # 0.00 x10^3u/L (0.00-0.012); NUCLEATED RBC % 0.0 % (0.00-0.2); Platelet Count 156 x10^3/uL (163-337); Red Blood Count 4.45 x10^6/uL (4.63-6.08); White Blood Count 6.8 x10^3/uL (4.23-9.07)
[2024-10-23 04:58] LABS: Calcium 9.2 mg/dL (8.4-10.2); Carbon Dioxide 28.0 mmol/L (22-30); Creatinine 1 1.27 mg/dL (0.66-1.25); EST GLOMERULAR FILTRATION RATE 58.2 ML/MIN; Glucose 103.0 mg/dL (74-106); SGOT/AST 16.0 U/L (17-59); SGPT/ALT 6.0 U/L (0-50); Total Protein 6.5 g/dL (6.3-8.2)
[2024-10-23 05:11] LABS: Potassium 3.2 mmol/L (3.5-5.1)
[2024-10-23] MEDS: POTASSIUM CHLORIDE 20 mEq IN WATER 100ML 100 ML IV SCH (08:15)
--- NOTE | 2024-10-23 08:53 | PCM.NOTE ---
Date and Time: 10/23/24 0846 Subjective Assessment: Mr. Lan is a 79-year-old male with a PMXH of HTN, HLD, CKD, colovesical fistula status post colectomy, who presented 10/20/24 with a three-day history of nausea, abdominal pain, and multiple episodes of non-bloody, non-bilious emesis. On arrival, he appeared clinically volume-depleted but hemodynamically stable. A CT abdomen/pelvis showed dilated jejunal loops with air-fluid levels, consistent with a small bowel obstruction, without signs of ischemia or perforation. No acute cholecystitis was noted, though incidental cholelithiasis was present. He was initiated on IV fluids, pain control, and Ceftriaxone for a concurrent urinary tract infection, with urine culture showing gram-negative organisms and culture pending sensistivity. His creatinine was elevated at 1.8 on admission, slightly above his known baseline of 1.5, now improving with resuscitation. As of hospital day two, his abdominal pain is better controlled,complaints of nauseas remain- patient declines NG placement, and he is tolerating conservative management. Surgery has been consulted and KUB series w/co ordered, patient to remain NPO. 10/22/24: Met with patient bedside. Endorses nausea and vomiting overnight. No bowel movement yet, but passing gas. Bowel sounds are present but hypoactive. Abdomen is tender on exam, though not distended. Discussed placing an NG tube, and the patient is now on board with the plan. Latest KUB shows mildly dilated, gas- filled small bowel loops in the left upper quadrant, but less than on the previous film. No free air. Plan is to continue serial KUBs per surgerys recommendation, keep IV fluids going, and continue treating the UTI. Antibiotics have been changed to renally dosed Levaquin to cover pseudomonas resulted on culture. 10/23: No overnight events noted. Endorses improvement with abdominal pain and no nausea/vomiting since NG placed yesterday. He is passing gas. No BM. Surgery following with recommendations for continued conservative management. Patient advised to ambulate. KUB scheduled for today. Patient does complain of cough which he reports as chronic. Lung sounds with crackles at the bases. CXR from yesterday does show possible infiltrate vs atelectasis. Patient is on Levaquin for UTI which will cover. Will add flutter and IS to help with non productive cough. Labs with hypokalemia today- will replenish. Denies fever,cough, sob, cp, abdominal pain, CRAMER, dizziness, N/V/D. - Review of Systems Constitutional: Weakness Eyes: No Symptoms Ears, Nose, & Throat: No Symptoms Respiratory: Cough Abdominal/Gastrointestinal: No Symptoms Genitourinary Symptoms: No Symptoms Musculoskeletal: No Symptoms Skin: No Symptoms Neurological: No Symptoms Psychological: No Symptoms Endocrine: No Symptoms Hematologic/Lymphatic: No Symptoms Immunological/Allergic: No Symptoms Objective Exam General Appearance: no apparent distress Neurologic Exam: alert, oriented x 3, cooperative Skin Exam: normal color Eye Exam: PERRL Ears, Nose, Throat Exam: normal ENT inspection Neck Exam: normal inspection Lymphatic Exam: adenopathy Respiratory Exam: crackles/rales Cardiovascular Exam: regular rate/rhythm, normal heart sounds Gastrointestinal/Abdomen Exam: soft, other (BS hypoactive x 4 quads) Extremity Exam: normal inspection Back Exam: normal inspection Male Genitalia Exam: deferred Rectal Exam: deferred Objective Data Vital Signs: Vital Signs - 24 hr Temp Pulse Resp BP Pulse Ox 10/23/24 07:42 97.3 F 92 H 21 117/71 92 L 10/23/24 04:00 97.9 F 85 16 126/71 93 L 10/22/24 23:27 99.1 F 92 H 16 139/76 92 L 10/22/24 19:56 98.5 F 77 15 164/77 94 L 10/22/24 16:00 98.7 F 85 18 139/78 96 10/22/24 12:00 98.5 F 97 H 16 125/76 95 Pain Assessment - Last Documented Pain Intensity 0 Pain Scale Used 0-10 Pain Scale Intake and Output: Intake & Output 10/20/24 10/21/24 10/22/24 10/23/24 11:59 11:59 11:59 11:59 Intake Total 1966 1965 2585 Output Total 1500 2500 Balance 1967 465 85 Weight 62.7 kg Lab Results: Lab Results-Last 24 Hours 10/23/24 10/23/24 Range/Units 04:28 04:28 WBC 6.8 (4.23-9.07) x10^3/uL RBC 4.45 L (4.63-6.08) x10^6/uL Hgb 13.8 (13.7-17.5) g/dL Hct 40.8 (40.1-51.0) % MCV 91.7 (79.0-92.2) fL MCH 31.0 (25.7-32.2) pg MCHC 33.8 (32.3-36.5) g/dL RDW 13.0 (11.6-14.4) % Plt Count 156 L (163-337) x10^3/uL MPV 9.7 (9.4-12.4) fL Gran % 64.4 (34.0-67.9) % Immature Gran % (Auto) 0.1 (0.001-0.429) % Nucleat RBC Rel Count 0.0 (0.00-0.2) % Eos # (Auto) 0.81 H (0.04-0.54) x10^3/uL Immature Gran # (Auto) 0.01 (0.001-0.031) x10^3u/L Absolute Lymphs (auto) 0.92 L (1.32-3.57) x10^3/uL Absolute Monos (auto) 0.64 (0.30-0.82) x10^3/uL Absolute Nucleated RBC 0.00 (0.00-0.012) x10^3u/L Lymphocytes % 13.5 L (21.8-53.1) % Monocytes % 9.4 (5.3-12.2) % Eosinophils % 11.9 H (0.8-7.0) % Basophils % 0.7 (0.2-1.2) % Absolute Granulocytes 4.36 (1.78-5.38) x10^3/uL Basophils # 0.05 (0.01-0.08) x10^3/uL Sodium 139 (135-145) mmol/L Potassium 3.2 L D (3.5-5.1) mmol/L Chloride 104 (98-107) mmol/L Carbon Dioxide 28 (22-30) mmol/L Anion Gap 10.9 (5-15) MEQ/L BUN 17 (9-20) mg/dL Creatinine 1.27 H (0.66-1.25) mg/dL Estimated GFR 58.2 ML/MIN Glucose 103 (74-106) mg/dL Calcium 9.2 (8.4-10.2) mg/dL Total Bilirubin 0.40 (0.2-1.3) mg/dL AST 16 L (17-59) U/L ALT 6 (0-50) U/L Alkaline Phosphatase 86 (38-126) U/L Serum Total Protein 6.5 (6.3-8.2) g/dL Albumin 3.6 (3.5-5.0) g/dL Radiology Exams: Radiology Procedures Category Date Time Status CHEST 1 VIEW (PORTABLE) Stat Exams 10/22/24 08:33 Completed KUB Routine Exams 10/23/24 09:00 Ordered KUB Stat Exams 10/21/24 14:12 Completed KUB Stat Exams 10/22/24 00:01 Completed KUB Urgent Exams 10/21/24 18:06 Completed Medications: Medications Generic Name Dose Route Start Last Admin Trade Name Freq PRN Reason Stop Dose Admin Acetaminophen 650 mg 10/20/24 21:26 10/20/24 22:15 Acetaminophen 325 Mg Tablet PO 11/19/24 21:25 650 mg Q4H PRN PRN Administration PAIN, FEVER, HEADACHE Amlodipine Besylate 2.5 mg 10/21/24 10:00 10/22/24 09:13 Amlodipine Besylate 5 Mg Tablet PO 11/20/24 09:59 Not Given DAILY EVELIN Aspirin 81 mg 10/21/24 10:00 10/21/24 09:22 Aspirin 81 Mg Tablet.Ec PO 11/20/24 09:59 81 mg DAILY EVELIN Administration Cyanocobalamin 2,500 mcg 10/21/24 10:00 10/22/24 09:13 Cyanocobalamin 500 Mcg Tablet PO 11/20/24 09:59 Not Given DAILY [facility] Enoxaparin Sodium 40 mg 10/21/24 10:00 10/21/24 09:24 Enoxaparin Sodium 40 Mg/0.4 Ml Syringe SQ 11/20/24 09:59 40 mg DAILY EVELIN Administration Ferrous Sulfate 325 mg 10/21/24 10:00 10/22/24 09:10 Ferrous Sulfate 325 Mg Tablet PO 11/20/24 09:59 Not Given DAILY [facility]ELIN Gabapentin 100 mg 10/21/24 10:00 10/22/24 09:12 Gabapentin 100 Mg Capsule PO 11/20/24 09:59 Not Given DAILY [facility] Hydromorphone HCl 1 mg 10/20/24 22:54 10/21/24 18:05 Hydromorphone 1 Mg/1ml Inj IV 10/25/24 22:53 1 mg Q4H PRN PRN Administration PAIN Dextrose/Sodium Chloride 1,000 mls @ 75 mls/hr 10/21/24 08:00 10/23/24 04:22 Dextrose 5%-Ns Iv Solution 1000 Ml IV 11/20/24 07:59 75 mls/hr .[id number] EVELIN Administration Levofloxacin/Dextrose 250 mg in 50 mls @ 50 mls/hr 10/23/24 10:00 Levaquin 250mg/50ml D5w IV 11/22/24 09:59 Q24H10 EVELIN Potassium Chloride 100 mls @ 50 mls/hr 10/23/24 07:30 10/23/24 08:15 Potassium Chloride 20 Meq In Water 100ml IV 10/23/24 15:29 50 mls/hr Q2H EVELIN Administration Levothyroxine Sodium 50 mcg 10/21/24 10:00 10/22/24 09:26 Levothyroxine Sodium 50 Mcg Tablet PO 11/20/24 09:59 50 mcg DAILY EVELIN Administration Metoprolol Tartrate 25 mg 10/21/24 10:00 10/22/24 21:37 Metoprolol Tartrate 25 Mg Tab PO 11/20/24 09:59 25 mg BID EVELIN Administration Miscellaneous Information 1 each 10/21/24 09:00 Medication Intervention 1 Each Each 11/20/24 08:59 .RN TO CHECK EVELIN Ondansetron HCl 4 mg 10/20/24 21:26 10/22/24 03:38 Ondansetron Hcl 4 Mg/2 Ml Vial IV 11/19/24 21:25 4 mg Q6H PRN PRN Administration NAUSEA/VOMITING Pantoprazole Sodium 40 mg 10/21/24 10:00 10/22/24 09:26 Protonix (Pantoprazole) 40 Mg Tablet PO 11/20/24 09:59 40 mg DAILY EVELIN Administration Primidone 50 mg 10/21/24 10:00 10/22/24 09:26 Primidone 50 Mg Tablet PO 11/20/24 09:59 50 mg DAILY EVELIN Administration Prochlorperazine Edisylate 10 mg 10/22/24 00:40 10/22/24 00:44 Prochlorperazine Edisylate 10 Mg/2 Ml Vial IV 11/21/24 00:39 10 mg Q8H PRN PRN Administration NAUSEA/VOMITING Simvastatin 40 mg 10/21/24 10:00 10/22/24 09:13 Simvastatin 20 Mg Tablet PO 11/20/24 09:59 Not Given DAILY EVELIN Tamsulosin HCl 0.4 mg 10/21/24 10:00 10/22/24 09:11 Tamsulosin Hcl 0.4 Mg Cap PO 11/20/24 09:59 Not Given DAILY [facility]ELIN Discontinued Medications Generic Name Dose Route Start Last Admin Trade Name Freq PRN Reason Stop Dose Admin Hydromorphone HCl 0.5 mg 10/20/24 17:36 10/20/24 18:34 Hydromorphone 1 Mg/1ml Inj IV 10/20/24 17:37 0.5 mg STAT ONE Administration Hydromorphone HCl Confirm 10/20/24 18:26 Hydromorphone 1 Mg/1ml Inj Administered 10/20/24 18:27 Dose 1 mg .ROUTE .STK-MED ONE Sodium Chloride 1,000 mls @ 999 mls/hr 10/20/24 17:36 10/20/24 20:07 Sodium Chloride 0.9% 1000 Ml IV 10/20/24 18:36 Infused .Q1H1M STA Infusion Sodium Chloride Confirm 10/20/24 18:27 Sodium Chloride 0.9% 1000 Ml Administered 10/20/24 18:28 Dose 1,000 mls @ ud .ROUTE .STK-MED ONE Ceftriaxone Sodium 1 gm in 100 mls @ 200 mls/hr 10/20/24 18:46 10/20/24 20:35 Rocephin 1 Gm / 100 Ml Nacl IV 10/20/24 19:15 Infused STAT ONE Infusion Ceftriaxone Sodium Confirm 10/20/24 19:56 Rocephin 1 Gm / 100 Ml Nacl Administered 10/20/24 19:57 Dose 1 gm in 100 mls @ ud IV .STK-MED ONE Sodium Chloride 1,000 mls @ 125 mls/hr 10/20/24 21:30 10/21/24 05:38 Sodium Chloride 0.9% 1000 Ml IV 11/19/24 21:29 125 mls/hr .Q8H EVELIN Administration Ceftriaxone Sodium 1 gm in 100 mls @ 200 mls/hr 10/21/24 10:00 10/21/24 09:28 Rocephin 1 Gm / 100 Ml Nacl IV 11/20/24 09:59 200 mls/hr Q24H10 EVELIN Administration Levofloxacin/Dextrose 500 mg in 100 mls @ 100 mls/hr 10/22/24 10:00 10/22/24 09:11 Levofloxacin 500mg/100ml D5w IV 10/22/24 10:59 Not Given ONCE ONE Lorazepam 0.5 mg 10/22/24 08:36 10/22/24 09:24 Lorazepam 2 Mg/1 Ml 2 Mg Vial IV 10/22/24 08:37 0.5 mg ONCE ONE Administration Metoprolol Tartrate 5 mg 10/20/24 23:00 10/21/24 04:07 Metoprolol Tartrate 5 Mg/5 Ml Vial IV 11/19/24 22:59 5 mg Q6H EVELIN Administration Non-Formulary Medication 1 each 10/22/24 07:37 Pharmacy Dosing Request 10/22/24 07:38 STAT ONE Ondansetron HCl 4 mg 10/20/24 17:36 10/20/24 18:30 Ondansetron Hcl 4 Mg/2 Ml Vial IV 10/20/24 17:37 4 mg STAT ONE Administration Ondansetron HCl Confirm 10/20/24 18:25 Ondansetron Hcl 4 Mg/2 Ml Vial Administered 10/20/24 18:26 Dose 4 mg .ROUTE .STK-MED ONE Pantoprazole Sodium 40 mg 10/20/24 17:36 10/20/24 18:32 Pantoprazole 40 Mg Vial IV 10/20/24 17:37 40 mg STAT ONE Administration Pantoprazole Sodium Confirm 10/20/24 18:26 Pantoprazole 40 Mg Vial Administered 10/20/24 18:27 Dose 40 mg IV .STK-MED ONE Multi-Disciplinary Progress Notes: Multi-Disciplinary Progress Notes 10/23/24 08:40 Case Management Note by Alexandrea Louie S/W PATIENT AND BROTHER. HE IS STILL PLANNING TO RETURN HOME WITH HIS BROTHER AND [facility] SU[facility] AT TIME OF DC. Initialized on 10/23/24 08:40 - END OF NOTE 10/22/24 12:37 Case Management Note by Alexandrea Louie [facility] HAS ACCEPTED PATIENT UPON DC. Initialized on 10/22/24 12:37 - END OF NOTE 10/22/24 11:20 Case Management Note by Alexandrea Louie REFERRAL SENT TO [facility]. THEY WILL NEED NOTIFIED AT TIME OF DC AT [phone]. THEY WILL NEED FAXED DC INSTURCTIONS, DC MED LIST AND DC SUMMARY ( IF AVAILABLE) TO [phone]. Initialized on 10/22/24 11:20 - END OF NOTE Assessment/Plan (1) Small bowel obstruction Current Visit: Yes Status: Acute Assessment & Plan: -CT A/P: Dilated jejunal loops, multiple air-fluid levels, no signs of ischemia or perforation -WBC normalized at 7.9, no leukocytosis, no lactic acidosis -NPO, IVF, IV Dilaudid for pain, Zofran/compazine PRN for nausea -General surgery consulted and note reviewed with recommendations for KUB series w/ contrast - most recent KUB performed 10/22 showing mildly dilated, gas-filled small bowel loops in the left upper belly area less prominent than on the previous exam. No free air is seen. -NG placed to LIS - CXR to confirm placement pending 10/23: -CMP/CBC reviewed -Surgery following, no documentation to review- per RN plan for conservative management - KUB scheduled for today -NG placed to LIS- CXR confirmed Code(s): K56.609 - UNSP INTESTNL OBST, UNSP TO PARTIAL VERSUS COMPLETE OBST ## abnormal finding of lung field -Patient with cough and crackles at bilateral bases; no fever or leukocytosis -CXR reviewed and shows minimal left basilar infiltrate vs atelectasis -Likely atelectasis or mild aspiration-related changes given clinical picture and ileus/SBO. -Already receiving Levaquin which provides partial pulmonary coverage. -Continue Levaquin (currently for UTI; provides coverage if infiltrate is infectious) -IS/flutter -Ambulation as tolerated to improve lung expansion ##Hypokalemia -Potassium reviewed at 3.2- will replenish per potassium protocol (2) Acute on chronic renal failure Current Visit: Yes Status: Acute Assessment & Plan: -Admission creatinine 1.8, baseline 1.6; now improving with hydration at 1.45- trend -Likely prerenal due to volume depletion in the setting of SBO and UTI -Continue IVF, switched to D5-containing fluids due to glucose 71; monitor renal function daily 10/23: -Creat reviewed a t1.27- better than baseline of 1.6- continue IVF with SBO -Avoid nephrotoxins Code(s): N17.9 - ACUTE KIDNEY FAILURE, UNSPECIFIED; N18.9 - CHRONIC KIDNEY DISEASE, UNSPECIFIED (3) Dehydration Current Visit: Yes Status: Acute Assessment & Plan: -Likely multifactorial due to vomiting, poor oral intake, and baseline CKD -BUN/Cr elevated, AG 12.2, glucose 71 -Continue IV fluids; currently receiving IVF with D5 due to borderline hypoglycemia Code(s): E86.0 - DEHYDRATION (4) Urinary tract infection Current Visit: Yes Status: Acute Assessment & Plan: -Urine culture with pseudomonas- ceftriaxone discontinued- levaquin started IV due to SBO - renally dosed Code(s): N39.0 - URINARY TRACT INFECTION, SITE NOT SPECIFIED (5) Hypertensive chronic kidney disease with stage 1 through stage 4 chronic kidney disease, or unspecified chronic kidney disease Current Visit: Yes Status: Chronic Assessment & Plan: -Chronic diagnosis -BP currently controlled without need for escalation -Continue home antihypertensives Code(s): I12.9 - HYPERTENSIVE CHRONIC KIDNEY DISEASE W STG 1-4/UNSP CHR KDNY (6) Colovesical fistula Current Visit: Yes Status: Resolved Assessment & Plan: -Status post partial colectomy VTE: Lovenox PPI: Protonix Next of KIN: friend- Leslie Robins [phone] D/C plan: 1-2 days Code status: Full Code(s): K56.609 - UNSP INTESTNL OBST, UNSP TO PARTIAL VERSUS COMPLETE OBST (2) Acute on chronic renal failure Current Visit: Yes Status: Acute Code(s): N17.9 - ACUTE KIDNEY FAILURE, UNSPECIFIED; N18.9 - CHRONIC KIDNEY DISEASE, UNSPECIFIED (3) Dehydration Current Visit: Yes Status: Acute Code(s): E86.0 - DEHYDRATION (4) Urinary tract infection Current Visit: Yes Status: Acute Code(s): N39.0 - URINARY TRACT INFECTION, SITE NOT SPECIFIED (5) Hypertensive chronic kidney disease with stage 1 through stage 4 chronic kidney disease, or unspecified chronic kidney disease Current Visit: Yes Status: Chronic Code(s): I12.9 - HYPERTENSIVE CHRONIC KIDNEY DISEASE W STG 1-4/UNSP CHR KDNY (6) Colovesical fistula Current Visit: Yes Status: Resolved Code(s): N32.1 - VESICOINTESTINAL FISTULA (7) Other nonspecific abnormal finding of lung field Current Visit: Yes Status: Acute Code(s): R91.8 - OTHER NONSPECIFIC ABNORMAL FINDING OF LUNG FIELD (8) Hypokalemia Current Visit: Yes Status: Acute Code(s): E87.6 - HYPOKALEMIA
[2024-10-23] MEDS: PHARMACY RENAL DOSING MC ONE (09:28)
--- NOTE | 2024-10-23 09:40 | XRAY ---
Indication: Bowel obstruction. Comparison: October 22, 2024 KUB demonstrates mild uniformly air distended small bowel loops without focal bowel dilatation/obstruction, grossly unchanged. Stable minimal rectal bowel gas. Enteric contrast not visualized presumed passed. New NG tube coiled in stomach. Solid organs unremarkable.
[2024-10-23] MEDS: Levaquin 250MG/50ML D5W 250 MG/50 ML BAG IV SCH (10:40)
[2024-10-24 04:58] LABS: Calcium 9.4 mg/dL (8.4-10.2); Carbon Dioxide 26.0 mmol/L (22-30); Creatinine 1 1.36 mg/dL (0.66-1.25); EST GLOMERULAR FILTRATION RATE 53.6 ML/MIN; Glucose 89.0 mg/dL (74-106); Potassium 4.1 mmol/L (3.5-5.1); SGOT/AST 18.0 U/L (17-59); SGPT/ALT 7.0 U/L (0-50); Total Protein 6.6 g/dL (6.3-8.2)
[2024-10-24 05:05] LABS: BASOPHIL % 1.1 % (0.2-1.2); Basophil (Absolute #) 0.07 x10^3/uL (0.01-0.08); Eosinophil (Absolute #) 0.61 x10^3/uL (0.04-0.54); Hematocrit 42.5 % (40.1-51.0); Hemoglobin 14.2 g/dL (13.7-17.5); IMMATURE GRAN # 0.02 x10^3u/L (0.001-0.031); IMMATURE GRAN % 0.3 % (0.001-0.429); Lymphocyte (Absolute #) 1.12 x10^3/uL (1.32-3.57); Mean Corpuscular Hemoglobin 30.7 pg (25.7-32.2); Mean Corpuscular Hgb Concent. 33.4 g/dL (32.3-36.5); Monocyte (Absolute #) 0.77 x10^3/uL (0.30-0.82); NUCLEATED RBC # 0.00 x10^3u/L (0.00-0.012); NUCLEATED RBC % 0.0 % (0.00-0.2); Platelet Count 161 x10^3/uL (163-337); Red Blood Count 4.62 x10^6/uL (4.63-6.08); White Blood Count 6.6 x10^3/uL (4.23-9.07)
--- NOTE | 2024-10-24 05:27 | PCM.NOTE ---
Date and Time: 10/24/24 0521 Subjective Assessment: Mr. Lan is a 79-year-old male with a PMXH of HTN, HLD, CKD, colovesical fistula status post colectomy, who presented 10/20/24 with a three-day history of nausea, abdominal pain, and multiple episodes of non-bloody, non-bilious emesis. On arrival, he appeared clinically volume-depleted but hemodynamically stable. A CT abdomen/pelvis showed dilated jejunal loops with air-fluid levels, consistent with a small bowel obstruction, without signs of ischemia or perforation. No acute cholecystitis was noted, though incidental cholelithiasis was present. He was initiated on IV fluids, pain control, and Ceftriaxone for a concurrent urinary tract infection, with urine culture showing gram-negative organisms and culture pending sensistivity. His creatinine was elevated at 1.8 on admission, slightly above his known baseline of 1.5, now improving with resuscitation. As of hospital day two, his abdominal pain is better controlled,complaints of nauseas remain- patient declines NG placement, and he is tolerating conservative management. Surgery has been consulted and KUB series w/co ordered, patient to remain NPO. 10/22/24: Met with patient bedside. Endorses nausea and vomiting overnight. No bowel movement yet, but passing gas. Bowel sounds are present but hypoactive. Abdomen is tender on exam, though not distended. Discussed placing an NG tube, and the patient is now on board with the plan. Latest KUB shows mildly dilated, gas- filled small bowel loops in the left upper quadrant, but less than on the previous film. No free air. Plan is to continue serial KUBs per surgerys recommendation, keep IV fluids going, and continue treating the UTI. Antibiotics have been changed to renally dosed Levaquin to cover pseudomonas resulted on culture. 10/23: No overnight events noted. Endorses improvement with abdominal pain and no nausea/vomiting since NG placed yesterday. He is passing gas. No BM. Surgery following with recommendations for continued conservative management. Patient advised to ambulate. KUB scheduled for today. Patient does complain of cough which he reports as chronic. Lung sounds with crackles at the bases. CXR from yesterday does show possible infiltrate vs atelectasis. Patient is on Levaquin for UTI which will cover. Will add flutter and IS to help with non productive cough. Labs with hypokalemia today- will replenish. Denies fever,cough, sob, cp, abdominal pain, CRAMER, dizziness, N/V/D. 10/24: Patient evaluated at bedside. KUB from 10/23 shows mildly distended small bowel loops without evidence of obstruction; findings are grossly stable. Minimal rectal gas; no enteric contrast visualized, likely passed. NG tube removed 10/23 per surgery; clear liquid diet initiated. Patient tolerating CLD without nausea or vomiting; abdominal pain resolved. Passing flatus; no bowel movement yet. Bowel sounds present in all four quadrants. Plan to advance diet as tolerated. Continue Levaquin for Pseudomonas UTI per culture. Lab with hypomagnesemia- will replenish and recheck in a.m. - Review of Systems Constitutional: No Symptoms Eyes: No Symptoms Ears, Nose, & Throat: No Symptoms Respiratory: Cough Cardiac: No Symptoms Abdominal/Gastrointestinal: No Symptoms Genitourinary Symptoms: No Symptoms Musculoskeletal: No Symptoms Skin: No Symptoms Neurological: No Symptoms Psychological: No Symptoms Endocrine: No Symptoms Hematologic/Lymphatic: No Symptoms Immunological/Allergic: No Symptoms Objective Exam General Appearance: no apparent distress Neurologic Exam: alert, oriented x 3, cooperative Skin Exam: normal color Eye Exam: PERRL Ears, Nose, Throat Exam: normal ENT inspection Respiratory Exam: normal breath sounds, lungs clear Cardiovascular Exam: regular rate/rhythm, normal heart sounds Gastrointestinal/Abdomen Exam: soft, normal bowel sounds Extremity Exam: normal inspection, normal range of motion Back Exam: normal inspection, normal range of motion Male Genitalia Exam: deferred Rectal Exam: deferred Objective Data Vital Signs: Vital Signs - 24 hr Temp Pulse Resp BP Pulse Ox 10/24/24 04:00 98.4 F 86 17 119/70 93 L 10/24/24 00:00 97.9 F 83 17 132/80 94 L 10/23/24 20:00 97.9 F 98 H 18 133/66 97 10/23/24 19:30 92 H 16 92 L 10/23/24 16:00 97.4 F 83 21 112/73 96 10/23/24 11:37 97.2 F 83 21 122/69 92 L 10/23/24 09:33 115 H 20 92 L 10/23/24 07:42 97.3 F 92 H 21 117/71 92 L Pain Assessment - Last Documented Pain Intensity 0 Pain Scale Used 0-10 Pain Scale Intake and Output: Intake & Output 10/21/24 10/22/24 10/23/24 10/24/24 11:59 11:59 11:59 11:59 Intake Total 1966 4156 8360 1834 Output Total 6072 2500 450 Balance 1966 689 971 7079 Weight 62.7 kg 62.7 kg Lab Results: Lab Results-Last 24 Hours 10/23/24 10/23/24 10/24/24 Range/Units 04:28 16:00 04:26 WBC 6.6 (4.23-9.07) x10^3/uL RBC 4.62 L (4.63-6.08) x10^6/uL Hgb 14.2 (13.7-17.5) g/dL Hct 42.5 (40.1-51.0) % MCV 92.0 (79.0-92.2) fL MCH 30.7 (25.7-32.2) pg MCHC 33.4 (32.3-36.5) g/dL RDW 12.9 (11.6-14.4) % Plt Count 161 L (163-337) x10^3/uL MPV 9.4 (9.4-12.4) fL Gran % 60.9 (34.0-67.9) % Immature Gran % (Auto) 0.3 (0.001-0.429) % Nucleat RBC Rel Count 0.0 (0.00-0.2) % Eos # (Auto) 0.61 H (0.04-0.54) x10^3/uL Immature Gran # (Auto) 0.02 (0.001-0.031) x10^3u/L Absolute Lymphs (auto) 1.12 L (1.32-3.57) x10^3/uL Absolute Monos (auto) 0.77 (0.30-0.82) x10^3/uL Absolute Nucleated RBC 0.00 (0.00-0.012) x10^3u/L Lymphocytes % 16.9 L (21.8-53.1) % Monocytes % 11.6 (5.3-12.2) % Eosinophils % 9.2 H (0.8-7.0) % Basophils % 1.1 (0.2-1.2) % Absolute Granulocytes 4.02 (1.78-5.38) x10^3/uL Basophils # 0.07 (0.01-0.08) x10^3/uL Sodium (135-145) mmol/L Potassium 4.7 D (3.5-5.1) mmol/L Chloride (98-107) mmol/L Carbon Dioxide (22-30) mmol/L Anion Gap (5-15) MEQ/L BUN (9-20) mg/dL Creatinine (0.66-1.25) mg/dL Estimated GFR ML/MIN Glucose (74-106) mg/dL Calcium (8.4-10.2) mg/dL Magnesium (1.6-2.3) mg/dL Total Bilirubin (0.2-1.3) mg/dL AST (17-59) U/L ALT (0-50) U/L Alkaline Phosphatase (38-126) U/L NT-Pro-B Natriuret Pep 1010 (<300) pg/mL Serum Total Protein (6.3-8.2) g/dL Albumin (3.5-5.0) g/dL 10/24/24 10/24/24 Range/Units 04:26 04:26 WBC (4.23-9.07) x10^3/uL RBC (4.63-6.08) x10^6/uL Hgb (13.7-17.5) g/dL Hct (40.1-51.0) % MCV (79.0-92.2) fL MCH (25.7-32.2) pg MCHC (32.3-36.5) g/dL RDW (11.6-14.4) % Plt Count (163-337) x10^3/uL MPV (9.4-12.4) fL Gran % (34.0-67.9) % Immature Gran % (Auto) (0.001-0.429) % Nucleat RBC Rel Count (0.00-0.2) % Eos # (Auto) (0.04-0.54) x10^3/uL Immature Gran # (Auto) (0.001-0.031) x10^3u/L Absolute Lymphs (auto) (1.32-3.57) x10^3/uL Absolute Monos (auto) (0.30-0.82) x10^3/uL Absolute Nucleated RBC (0.00-0.012) x10^3u/L Lymphocytes % (21.8-53.1) % Monocytes % (5.3-12.2) % Eosinophils % (0.8-7.0) % Basophils % (0.2-1.2) % Absolute Granulocytes (1.78-5.38) x10^3/uL Basophils # (0.01-0.08) x10^3/uL Sodium 138 (135-145) mmol/L Potassium 4.1 (3.5-5.1) mmol/L Chloride 102 (98-107) mmol/L Carbon Dioxide 26 (22-30) mmol/L Anion Gap 13.3 (5-15) MEQ/L BUN 17 (9-20) mg/dL Creatinine 1.36 H (0.66-1.25) mg/dL Estimated GFR 53.6 ML/MIN Glucose 89 (74-106) mg/dL Calcium 9.4 (8.4-10.2) mg/dL Magnesium 1.5 L (1.6-2.3) mg/dL Total Bilirubin 0.60 (0.2-1.3) mg/dL AST 18 (17-59) U/L ALT 7 (0-50) U/L Alkaline Phosphatase 82 (38-126) U/L NT-Pro-B Natriuret Pep (<300) pg/mL Serum Total Protein 6.6 (6.3-8.2) g/dL Albumin 3.7 (3.5-5.0) g/dL Radiology Exams: Radiology Procedures Category Date Time Status CHEST 1 VIEW (PORTABLE) Stat Exams 10/22/24 08:33 Completed KUB Routine Exams 10/23/24 09:00 Completed Medications: Medications Generic Name Dose Route Start Last Admin Trade Name Freq PRN Reason Stop Dose Admin Acetaminophen 650 mg 10/20/24 21:26 10/20/24 22:15 Acetaminophen 325 Mg Tablet PO 11/19/24 21:25 650 mg Q4H PRN PRN Administration PAIN, FEVER, HEADACHE Amlodipine Besylate 2.5 mg 10/21/24 10:00 10/23/24 10:01 Amlodipine Besylate 5 Mg Tablet PO 11/20/24 09:59 2.5 mg DAILY EVELIN Administration Aspirin 81 mg 10/21/24 10:00 10/21/24 09:22 Aspirin 81 Mg Tablet.Ec PO 11/20/24 09:59 81 mg DAILY EVELIN Administration Cyanocobalamin 2,500 mcg 10/21/24 10:00 10/23/24 10:00 Cyanocobalamin 500 Mcg Tablet PO 11/20/24 09:59 2,500 mcg DAILY EVELIN Administration Enoxaparin Sodium 40 mg 10/21/24 10:00 10/21/24 09:24 Enoxaparin Sodium 40 Mg/0.4 Ml Syringe SQ 11/20/24 09:59 40 mg DAILY EVELIN Administration Ferrous Sulfate 325 mg 10/21/24 10:00 10/23/24 10:03 Ferrous Sulfate 325 Mg Tablet PO 11/20/24 09:59 325 mg DAILY EVELIN Administration Gabapentin 100 mg 10/21/24 10:00 10/23/24 10:02 Gabapentin 100 Mg Capsule PO 11/20/24 09:59 100 mg DAILY EVELIN Administration Hydromorphone HCl 1 mg 10/20/24 22:54 10/21/24 18:05 Hydromorphone 1 Mg/1ml Inj IV 10/25/24 22:53 1 mg Q4H PRN PRN Administration PAIN Levofloxacin/Dextrose 250 mg in 50 mls @ 50 mls/hr 10/23/24 10:00 10/23/24 10:40 Levaquin 250mg/50ml D5w IV 11/22/24 09:59 50 mls/hr Q24H10 EVELIN Administration Levothyroxine Sodium 50 mcg 10/21/24 10:00 10/23/24 10:02 Levothyroxine Sodium 50 Mcg Tablet PO 11/20/24 09:59 50 mcg DAILY EVELIN Administration Metoprolol Tartrate 25 mg 10/21/24 10:00 10/23/24 22:08 Metoprolol Tartrate 25 Mg Tab PO 11/20/24 09:59 25 mg BID EVELIN Administration Miscellaneous Information 1 each 10/21/24 09:00 Medication Intervention 1 Each Each 11/20/24 08:59 .RN TO CHECK EVELIN Ondansetron HCl 4 mg 10/20/24 21:26 10/22/24 03:38 Ondansetron Hcl 4 Mg/2 Ml Vial IV 11/19/24 21:25 4 mg Q6H PRN PRN Administration NAUSEA/VOMITING Pantoprazole Sodium 40 mg 10/21/24 10:00 10/23/24 10:02 Protonix (Pantoprazole) 40 Mg Tablet PO 11/20/24 09:59 40 mg DAILY EVELIN Administration Primidone 50 mg 10/21/24 10:00 10/23/24 10:02 Primidone 50 Mg Tablet PO 11/20/24 09:59 50 mg DAILY EVELIN Administration Prochlorperazine Edisylate 10 mg 10/22/24 00:40 10/22/24 00:44 Prochlorperazine Edisylate 10 Mg/2 Ml Vial IV 11/21/24 00:39 10 mg Q8H PRN PRN Administration NAUSEA/VOMITING Simvastatin 40 mg 10/21/24 10:00 10/23/24 10:01 Simvastatin 20 Mg Tablet PO 11/20/24 09:59 40 mg DAILY EVELIN Administration Tamsulosin HCl 0.4 mg 10/21/24 10:00 10/23/24 10:01 Tamsulosin Hcl 0.4 Mg Cap PO 11/20/24 09:59 0.4 mg DAILY EVELIN Administration Discontinued Medications Generic Name Dose Route Start Last Admin Trade Name Freq PRN Reason Stop Dose Admin Hydromorphone HCl 0.5 mg 10/20/24 17:36 10/20/24 18:34 Hydromorphone 1 Mg/1ml Inj IV 10/20/24 17:37 0.5 mg STAT ONE Administration Hydromorphone HCl Confirm 10/20/24 18:26 Hydromorphone 1 Mg/1ml Inj Administered 10/20/24 18:27 Dose 1 mg .ROUTE .STK-MED ONE Sodium Chloride 1,000 mls @ 999 mls/hr 10/20/24 17:36 10/20/24 20:07 Sodium Chloride 0.9% 1000 Ml IV 10/20/24 18:36 Infused .Q1H1M STA Infusion Sodium Chloride Confirm 10/20/24 18:27 Sodium Chloride 0.9% 1000 Ml Administered 10/20/24 18:28 Dose 1,000 mls @ ud .ROUTE .STK-MED ONE Ceftriaxone Sodium 1 gm in 100 mls @ 200 mls/hr 10/20/24 18:46 10/20/24 20:35 Rocephin 1 Gm / 100 Ml Nacl IV 10/20/24 19:15 Infused STAT ONE Infusion Ceftriaxone Sodium Confirm 10/20/24 19:56 Rocephin 1 Gm / 100 Ml Nacl Administered 10/20/24 19:57 Dose 1 gm in 100 mls @ ud IV .STK-MED ONE Sodium Chloride 1,000 mls @ 125 mls/hr 10/20/24 21:30 10/21/24 05:38 Sodium Chloride 0.9% 1000 Ml IV 11/19/24 21:29 125 mls/hr .Q8H EVELIN Administration Ceftriaxone Sodium 1 gm in 100 mls @ 200 mls/hr 10/21/24 10:00 10/21/24 09:28 Rocephin 1 Gm / 100 Ml Nacl IV 11/20/24 09:59 200 mls/hr Q24H10 EVELIN Administration Dextrose/Sodium Chloride 1,000 mls @ 75 mls/hr 10/21/24 08:00 10/23/24 17:00 Dextrose 5%-Ns Iv Solution 1000 Ml IV 11/20/24 07:59 Not Given .[id number] EVELIN Levofloxacin/Dextrose 500 mg in 100 mls @ 100 mls/hr 10/22/24 10:00 10/22/24 09:11 Levofloxacin 500mg/100ml D5w IV 10/22/24 10:59 Not Given ONCE ONE Potassium Chloride 100 mls @ 50 mls/hr 10/23/24 07:30 10/23/24 15:06 Potassium Chloride 20 Meq In Water 100ml IV 10/23/24 15:29 50 mls/hr Q2H EVELIN Administration Lorazepam 0.5 mg 10/22/24 08:36 10/22/24 09:24 Lorazepam 2 Mg/1 Ml 2 Mg Vial IV 10/22/24 08:37 0.5 mg ONCE ONE Administration Metoprolol Tartrate 5 mg 10/20/24 23:00 10/21/24 04:07 Metoprolol Tartrate 5 Mg/5 Ml Vial IV 11/19/24 22:59 5 mg Q6H EVELIN Administration Non-Formulary Medication 1 each 10/22/24 07:37 10/23/24 09:28 Pharmacy Dosing Request 10/22/24 07:38 Not Given STAT ONE Ondansetron HCl 4 mg 10/20/24 17:36 10/20/24 18:30 Ondansetron Hcl 4 Mg/2 Ml Vial IV 10/20/24 17:37 4 mg STAT ONE Administration Ondansetron HCl Confirm 10/20/24 18:25 Ondansetron Hcl 4 Mg/2 Ml Vial Administered 10/20/24 18:26 Dose 4 mg .ROUTE .STK-MED ONE Pantoprazole Sodium 40 mg 10/20/24 17:36 10/20/24 18:32 Pantoprazole 40 Mg Vial IV 10/20/24 17:37 40 mg STAT ONE Administration Pantoprazole Sodium Confirm 10/20/24 18:26 Pantoprazole 40 Mg Vial Administered 10/20/24 18:27 Dose 40 mg IV .STK-MED ONE Multi-Disciplinary Progress Notes: Multi-Disciplinary Progress Notes 10/23/24 08:40 Case Management Note by Alexandrea Louie S/W PATIENT AND BROTHER. HE IS STILL PLANNING TO RETURN HOME WITH HIS BROTHER AND [facility] SUPPORT AT TIME OF DC. Initialized on 10/23/24 08:40 - END OF NOTE Assessment/Plan (1) Small bowel obstruction Current Visit: Yes Status: Acute Assessment & Plan: -CT A/P: Dilated jejunal loops, multiple air-fluid levels, no signs of ischemia or perforation -WBC normalized at 7.9, no leukocytosis, no lactic acidosis -NPO, IVF, IV Dilaudid for pain, Zofran/compazine PRN for nausea -General surgery consulted and note reviewed with recommendations for KUB series w/ contrast - most recent KUB performed 10/22 showing mildly dilated, gas-filled small bowel loops in the left upper belly area less prominent than on the previous exam. No free air is seen. -NG placed to LIS - CXR to confirm placement pending 10/23: -CMP/CBC reviewed -Surgery following, no documentation to review- per RN plan for conservative management - KUB scheduled for today -NG placed to LIS- CXR confirmed 10/24: -KUB reviewed showing mild uniformly air distended small bowel loops without focal bowel dilatation/obstruction, grossly unchanged. Stable minimal rectal bowel gas. Enteric contrast not visualized presumed passed. New NG tube coiled in stomach. Solid organs unremarkable. -Surgery following, documentation not available, per RN report- surgery has ordered d/c of NG tube and CLD -CMP/CBC reviewed -Advance diet as tolerated Code(s): K56.609 - UNSP INTESTNL OBST, UNSP TO PARTIAL VERSUS COMPLETE OBST ## abnormal finding of lung field -Patient with cough and crackles at bilateral bases; no fever or leukocytosis -CXR reviewed and shows minimal left basilar infiltrate vs atelectasis -Likely atelectasis or mild aspiration-related changes given clinical picture and ileus/SBO. -Already receiving Levaquin which provides partial pulmonary coverage. -Continue Levaquin (currently for UTI; provides coverage if infiltrate is infectious) -IS/flutter -Ambulation as tolerated to improve lung expansion ##Hypokalemia -Potassium reviewed at 3.2- will replenish per potassium protocol 10/24: -Potassium reviewed at 4.1 after replenishment 10/23- continue to trend ##Hypomagnesemia 10/24: -Mag level reviewed at 1.5- replenish per protocol, recheck in a.m. (2) Acute on chronic renal failure Current Visit: Yes Status: Acute Assessment & Plan: -Admission creatinine 1.8, baseline 1.6; now improving with hydration at 1.45- trend -Likely prerenal due to volume depletion in the setting of SBO and UTI -Continue IVF, switched to D5-containing fluids due to glucose 71; monitor renal function daily 10/23: -Creat reviewed a t1.27- better than baseline of 1.6- continue IVF with SBO -Avoid nephrotoxins 10/24: -Creat reviewed at 1.36-better than previous baseline -encourage oral hydration- consider restarting IVF Code(s): N17.9 - ACUTE KIDNEY FAILURE, UNSPECIFIED; N18.9 - CHRONIC KIDNEY DISEASE, UNSPECIFIED (3) Dehydration Current Visit: Yes Status: Acute Assessment & Plan: -Likely multifactorial due to vomiting, poor oral intake, and baseline CKD -BUN/Cr elevated, AG 12.2, glucose 71 -Continue IV fluids; currently receiving IVF with D5 due to borderline hypoglycemia Code(s): E86.0 - DEHYDRATION (4) Urinary tract infection Current Visit: Yes Status: Acute Assessment & Plan: -Urine culture with pseudomonas- ceftriaxone discontinued- levaquin started IV due to SBO - renally dosed Code(s): N39.0 - URINARY TRACT INFECTION, SITE NOT SPECIFIED (5) Hypertensive chronic kidney disease with stage 1 through stage 4 chronic kidney disease, or unspecified chronic kidney disease Current Visit: Yes Status: Chronic Assessment & Plan: -Chronic diagnosis -BP currently controlled without need for escalation -Continue home antihypertensives Code(s): I12.9 - HYPERTENSIVE CHRONIC KIDNEY DISEASE W STG 1-4/UNSP CHR KDNY (6) Colovesical fistula Current Visit: Yes Status: Resolved Assessment & Plan: -Status post partial colectomy VTE: Lovenox PPI: Protonix Next of KIN: friend- Leslie Robins [phone] D/C plan: 1-2 days Code status: Full Code(s): K56.609 - UNSP INTESTNL OBST, UNSP TO PARTIAL VERSUS COMPLETE OBST (2) Acute on chronic renal failure Current Visit: Yes Status: Acute Code(s): N17.9 - ACUTE KIDNEY FAILURE, UNSPECIFIED; N18.9 - CHRONIC KIDNEY DISEASE, UNSPECIFIED (3) Dehydration Current Visit: Yes Status: Acute Code(s): E86.0 - DEHYDRATION (4) Urinary tract infection Current Visit: Yes Status: Acute Code(s): N39.0 - URINARY TRACT INFECTION, SITE NOT SPECIFIED (5) Hypertensive chronic kidney disease with stage 1 through stage 4 chronic kidney disease, or unspecified chronic kidney disease Current Visit: Yes Status: Chronic Code(s): I12.9 - HYPERTENSIVE CHRONIC KIDNEY DISEASE W STG 1-4/UNSP CHR KDNY (6) Colovesical fistula Current Visit: Yes Status: Resolved Code(s): N32.1 - VESICOINTESTINAL FISTULA (7) Other nonspecific abnormal finding of lung field Current Visit: Yes Status: Acute Code(s): R91.8 - OTHER NONSPECIFIC ABNORMAL FINDING OF LUNG FIELD (8) Hypokalemia Current Visit: Yes Status: Acute Code(s): E87.6 - HYPOKALEMIA (9) Hypomagnesemia Current Visit: Yes Status: Acute Code(s): E83.42 - HYPOMAGNESEMIA
[2024-10-24] MEDS: PATIENT OWN MEDICATION IH SCH (06:40)
[2024-10-24] MEDS: MAGNESIUM SULF 2 G/50 ML BAG 2 GM/50 ML PIGGYBACK IV ONE (07:51)
[2024-10-24 11:19] VITALS: RESP 16
--- NOTE | 2024-10-24 14:33 | PCM.NOTE ---
Date and Time: 10/24/24 1432 Objective Data Vital Signs: Vital Signs - 24 hr Temp Pulse Resp BP Pulse Ox 10/24/24 11:18 98.0 F 62 16 130/64 95 10/24/24 07:03 97.6 F 70 18 108/67 94 L 10/24/24 06:50 70 18 94 L 10/24/24 04:00 98.4 F 86 17 119/70 93 L 10/24/24 00:00 97.9 F 83 17 132/80 94 L 10/23/24 20:00 97.9 F 98 H 18 133/66 97 10/23/24 19:30 92 H 16 92 L 10/23/24 16:00 97.4 F 83 21 112/73 96 Pain Assessment - Last Documented Pain Intensity 0 Pain Scale Used 0-10 Pain Scale Intake and Output: Intake & Output 10/22/24 10/23/24 10/24/24 10/25/24 11:59 11:59 11:59 11:59 Intake Total 1965 2825 2314 480 Output Total 1500 2500 450 Balance 596 394 7690 480 Weight 62.7 kg Lab Results: Lab Results-Last 24 Hours 10/23/24 10/24/24 10/24/24 Range/Units 16:00 04:26 04:26 WBC 6.6 (4.23-9.07) x10^3/uL RBC 4.62 L (4.63-6.08) x10^6/uL Hgb 14.2 (13.7-17.5) g/dL Hct 42.5 (40.1-51.0) % MCV 92.0 (79.0-92.2) fL MCH 30.7 (25.7-32.2) pg MCHC 33.4 (32.3-36.5) g/dL RDW 12.9 (11.6-14.4) % Plt Count 161 L (163-337) x10^3/uL MPV 9.4 (9.4-12.4) fL Gran % 60.9 (34.0-67.9) % Immature Gran % (Auto) 0.3 (0.001-0.429) % Nucleat RBC Rel Count 0.0 (0.00-0.2) % Eos # (Auto) 0.61 H (0.04-0.54) x10^3/uL Immature Gran # (Auto) 0.02 (0.001-0.031) x10^3u/L Absolute Lymphs (auto) 1.12 L (1.32-3.57) x10^3/uL Absolute Monos (auto) 0.77 (0.30-0.82) x10^3/uL Absolute Nucleated RBC 0.00 (0.00-0.012) x10^3u/L Lymphocytes % 16.9 L (21.8-53.1) % Monocytes % 11.6 (5.3-12.2) % Eosinophils % 9.2 H (0.8-7.0) % Basophils % 1.1 (0.2-1.2) % Absolute Granulocytes 4.02 (1.78-5.38) x10^3/uL Basophils # 0.07 (0.01-0.08) x10^3/uL Sodium 138 (135-145) mmol/L Potassium 4.7 D 4.1 (3.5-5.1) mmol/L Chloride 102 (98-107) mmol/L Carbon Dioxide 26 (22-30) mmol/L Anion Gap 13.3 (5-15) MEQ/L BUN 17 (9-20) mg/dL Creatinine 1.36 H (0.66-1.25) mg/dL Estimated GFR 53.6 ML/MIN Glucose 89 (74-106) mg/dL Calcium 9.4 (8.4-10.2) mg/dL Magnesium (1.6-2.3) mg/dL Total Bilirubin 0.60 (0.2-1.3) mg/dL AST 18 (17-59) U/L ALT 7 (0-50) U/L Alkaline Phosphatase 82 (38-126) U/L Serum Total Protein 6.6 (6.3-8.2) g/dL Albumin 3.7 (3.5-5.0) g/dL 10/24/24 Range/Units 04:26 WBC (4.23-9.07) x10^3/uL RBC (4.63-6.08) x10^6/uL Hgb (13.7-17.5) g/dL Hct (40.1-51.0) % MCV (79.0-92.2) fL MCH (25.7-32.2) pg MCHC (32.3-36.5) g/dL RDW (11.6-14.4) % Plt Count (163-337) x10^3/uL MPV (9.4-12.4) fL Gran % (34.0-67.9) % Immature Gran % (Auto) (0.001-0.429) % Nucleat RBC Rel Count (0.00-0.2) % Eos # (Auto) (0.04-0.54) x10^3/uL Immature Gran # (Auto) (0.001-0.031) x10^3u/L Absolute Lymphs (auto) (1.32-3.57) x10^3/uL Absolute Monos (auto) (0.30-0.82) x10^3/uL Absolute Nucleated RBC (0.00-0.012) x10^3u/L Lymphocytes % (21.8-53.1) % Monocytes % (5.3-12.2) % Eosinophils % (0.8-7.0) % Basophils % (0.2-1.2) % Absolute Granulocytes (1.78-5.38) x10^3/uL Basophils # (0.01-0.08) x10^3/uL Sodium (135-145) mmol/L Potassium (3.5-5.1) mmol/L Chloride (98-107) mmol/L Carbon Dioxide (22-30) mmol/L Anion Gap (5-15) MEQ/L BUN (9-20) mg/dL Creatinine (0.66-1.25) mg/dL Estimated GFR ML/MIN Glucose (74-106) mg/dL Calcium (8.4-10.2) mg/dL Magnesium 1.5 L (1.6-2.3) mg/dL Total Bilirubin (0.2-1.3) mg/dL AST (17-59) U/L ALT (0-50) U/L Alkaline Phosphatase (38-126) U/L Serum Total Protein (6.3-8.2) g/dL Albumin (3.5-5.0) g/dL Radiology Exams: Radiology Procedures Category Date Time Status KUB Routine Exams 10/23/24 09:00 Completed Medications: Medications Generic Name Dose Route Start Last Admin Trade Name Freq PRN Reason Stop Dose Admin Acetaminophen 650 mg 10/20/24 21:26 10/20/24 22:15 Acetaminophen 325 Mg Tablet PO 11/19/24 21:25 650 mg Q4H PRN PRN Administration PAIN, FEVER, HEADACHE Amlodipine Besylate 2.5 mg 10/21/24 10:00 10/24/24 09:00 Amlodipine Besylate 5 Mg Tablet PO 11/20/24 09:59 2.5 mg DAILY EVELIN Administration Aspirin 81 mg 10/21/24 10:00 10/24/24 10:52 Aspirin 81 Mg Tablet.Ec PO 11/20/24 09:59 81 mg DAILY EVELIN Administration Cyanocobalamin 2,500 mcg 10/21/24 10:00 10/24/24 09:01 Cyanocobalamin 500 Mcg Tablet PO 11/20/24 09:59 2,500 mcg DAILY EVELIN Administration Enoxaparin Sodium 40 mg 10/21/24 10:00 10/24/24 10:52 Enoxaparin Sodium 40 Mg/0.4 Ml Syringe SQ 11/20/24 09:59 40 mg DAILY EVELIN Administration Ferrous Sulfate 325 mg 10/21/24 10:00 10/24/24 08:59 Ferrous Sulfate 325 Mg Tablet PO 11/20/24 09:59 325 mg DAILY EVELIN Administration Gabapentin 100 mg 10/21/24 10:00 10/24/24 09:01 Gabapentin 100 Mg Capsule PO 11/20/24 09:59 100 mg DAILY EVELIN Administration Hydromorphone HCl 1 mg 10/20/24 22:54 10/21/24 18:05 Hydromorphone 1 Mg/1ml Inj IV 10/25/24 22:53 1 mg Q4H PRN PRN Administration PAIN Levofloxacin/Dextrose 250 mg in 50 mls @ 50 mls/hr 10/23/24 10:00 10/24/24 09:02 Levaquin 250mg/50ml D5w IV 11/22/24 09:59 50 mls/hr Q24H10 EVELIN Administration Levothyroxine Sodium 50 mcg 10/21/24 10:00 10/24/24 09:02 Levothyroxine Sodium 50 Mcg Tablet PO 11/20/24 09:59 50 mcg DAILY EVELIN Administration Metoprolol Tartrate 25 mg 10/21/24 10:00 10/24/24 09:00 Metoprolol Tartrate 25 Mg Tab PO 11/20/24 09:59 25 mg BID EVELIN Administration Ondansetron HCl 4 mg 10/20/24 21:26 10/22/24 03:38 Ondansetron Hcl 4 Mg/2 Ml Vial IV 11/19/24 21:25 4 mg Q6H PRN PRN Administration NAUSEA/VOMITING Pantoprazole Sodium 40 mg 10/21/24 10:00 10/24/24 09:00 Protonix (Pantoprazole) 40 Mg Tablet PO 11/20/24 09:59 40 mg DAILY EVELIN Administration Patient Own Med : 1 each 10/24/24 07:00 Breo Ellipta 100 Mcg IH 11/23/24 06:59 /25 Mcg DAILY@0700 EVELIN Polyethylene Glycol 17 gm 10/24/24 14:27 Polyethylene Glycol 3350 17 Gm Packet PO 11/23/24 14:26 DAILY EVELIN Primidone 50 mg 10/21/24 10:00 10/24/24 09:02 Primidone 50 Mg Tablet PO 11/20/24 09:59 50 mg DAILY EVELIN Administration Prochlorperazine Edisylate 10 mg 10/22/24 00:40 10/22/24 00:44 Prochlorperazine Edisylate 10 Mg/2 Ml Vial IV 11/21/24 00:39 10 mg Q8H PRN PRN Administration NAUSEA/VOMITING Simvastatin 40 mg 10/21/24 10:00 10/24/24 08:59 Simvastatin 20 Mg Tablet PO 11/20/24 09:59 40 mg DAILY EVELIN Administration Tamsulosin HCl 0.4 mg 10/21/24 10:00 10/24/24 09:00 Tamsulosin Hcl 0.4 Mg Cap PO 11/20/24 09:59 0.4 mg DAILY EVELIN Administration Discontinued Medications Generic Name Dose Route Start Last Admin Trade Name Freq PRN Reason Stop Dose Admin Hydromorphone HCl 0.5 mg 10/20/24 17:36 10/20/24 18:34 Hydromorphone 1 Mg/1ml Inj IV 10/20/24 17:37 0.5 mg STAT ONE Administration Hydromorphone HCl Confirm 10/20/24 18:26 Hydromorphone 1 Mg/1ml Inj Administered 10/20/24 18:27 Dose 1 mg .ROUTE .STK-MED ONE Sodium Chloride 1,000 mls @ 999 mls/hr 10/20/24 17:36 10/20/24 20:07 Sodium Chloride 0.9% 1000 Ml IV 10/20/24 18:36 Infused .Q1H1M STA Infusion Sodium Chloride Confirm 10/20/24 18:27 Sodium Chloride 0.9% 1000 Ml Administered 10/20/24 18:28 Dose 1,000 mls @ ud .ROUTE .STK-MED ONE Ceftriaxone Sodium 1 gm in 100 mls @ 200 mls/hr 10/20/24 18:46 10/20/24 20:35 Rocephin 1 Gm / 100 Ml Nacl IV 10/20/24 19:15 Infused STAT ONE Infusion Ceftriaxone Sodium Confirm 10/20/24 19:56 Rocephin 1 Gm / 100 Ml Nacl Administered 10/20/24 19:57 Dose 1 gm in 100 mls @ ud IV .STK-MED ONE Sodium Chloride 1,000 mls @ 125 mls/hr 10/20/24 21:30 10/21/24 05:38 Sodium Chloride 0.9% 1000 Ml IV 11/19/24 21:29 125 mls/hr .Q8H EVELIN Administration Ceftriaxone Sodium 1 gm in 100 mls @ 200 mls/hr 10/21/24 10:00 10/21/24 09:28 Rocephin 1 Gm / 100 Ml Nacl IV 11/20/24 09:59 200 mls/hr Q24H10 EVELIN Administration Dextrose/Sodium Chloride 1,000 mls @ 75 mls/hr 10/21/24 08:00 10/23/24 17:00 Dextrose 5%-Ns Iv Solution 1000 Ml IV 11/20/24 07:59 Not Given .[id number] EVELIN Levofloxacin/Dextrose 500 mg in 100 mls @ 100 mls/hr 10/22/24 10:00 10/22/24 09:11 Levofloxacin 500mg/100ml D5w IV 10/22/24 10:59 Not Given ONCE ONE Potassium Chloride 100 mls @ 50 mls/hr 10/23/24 07:30 10/23/24 15:06 Potassium Chloride 20 Meq In Water 100ml IV 10/23/24 15:29 50 mls/hr Q2H EVELIN Administration Magnesium Sulfate/Water 2 gm in 50 mls @ 100 mls/hr 10/24/24 07:30 10/24/24 07:51 Magnesium Sulf 2 G/50 Ml Bag IV 10/24/24 07:59 100 mls/hr ONCE ONE Administration Lorazepam 0.5 mg 10/22/24 08:36 10/22/24 09:24 Lorazepam 2 Mg/1 Ml 2 Mg Vial IV 10/22/24 08:37 0.5 mg ONCE ONE Administration Metoprolol Tartrate 5 mg 10/20/24 23:00 10/21/24 04:07 Metoprolol Tartrate 5 Mg/5 Ml Vial IV 11/19/24 22:59 5 mg Q6H EVELIN Administration Miscellaneous Information 1 each 10/21/24 09:00 Medication Intervention 1 Each Each 11/20/24 08:59 .RN TO CHECK PENDING SALE TO [facility] Non-Formulary Medication 1 each 10/22/24 07:37 10/23/24 09:28 Pharmacy Dosing Request 10/22/24 07:38 Not Given STAT ONE Ondansetron HCl 4 mg 10/20/24 17:36 10/20/24 18:30 Ondansetron Hcl 4 Mg/2 Ml Vial IV 10/20/24 17:37 4 mg STAT ONE Administration Ondansetron HCl Confirm 10/20/24 18:25 Ondansetron Hcl 4 Mg/2 Ml Vial Administered 10/20/24 18:26 Dose 4 mg .ROUTE .STK-MED ONE Pantoprazole Sodium 40 mg 10/20/24 17:36 10/20/24 18:32 Pantoprazole 40 Mg Vial IV 10/20/24 17:37 40 mg STAT ONE Administration Pantoprazole Sodium Confirm 10/20/24 18:26 Pantoprazole 40 Mg Vial Administered 10/20/24 18:27 Dose 40 mg IV .STK-MED ONE Patient Own Medication 1 each 10/24/24 07:00 10/24/24 06:55 Patient Own Med Misc 11/23/24 06:59 Not Given DAILY EVELIN Multi-Disciplinary Progress Notes: Multi-Disciplinary Progress Notes 10/24/24 10:15 Case Management Note by Alexandrea Louie S/W PATIENT AND BROTHER AND HE STATES FEELING MUCH BETTER TODAY. STILL PLANS TO RETURN HOME AT HIS PLOF WITH HIS BROTHER AND [facility] TO SUPPORT. Initialized on 10/24/24 10:15 - END OF NOTE Assessment/Plan (1) Small bowel obstruction Current Visit: Yes Status: Acute Assessment & Plan: S: no acute issues overnight. no n/v. no abd pain. + flatus. no bm. stacey reg diet. o nad nonlabored resps nd, soft, nttp a/p: awaiting bm. miralax daily. diet as stacey. -ok to dc when has bm. -f/u in office 2 weeks. - Code(s): K56.609 - UNSP INTESTNL OBST, UNSP TO PARTIAL VERSUS COMPLETE OBST
[2024-10-24] MEDS: Miralax Powder 17GM PACKET PO SCH (14:44)
[2024-10-25 04:56] LABS: BASOPHIL % 0.8 % (0.2-1.2); Basophil (Absolute #) 0.06 x10^3/uL (0.01-0.08); Eosinophil (Absolute #) 0.61 x10^3/uL (0.04-0.54); Hematocrit 42.9 % (40.1-51.0); Hemoglobin 14.1 g/dL (13.7-17.5); IMMATURE GRAN # 0.02 x10^3u/L (0.001-0.031); IMMATURE GRAN % 0.3 % (0.001-0.429); Lymphocyte (Absolute #) 1.28 x10^3/uL (1.32-3.57); Mean Corpuscular Hemoglobin 30.6 pg (25.7-32.2); Mean Corpuscular Hgb Concent. 32.9 g/dL (32.3-36.5); Monocyte (Absolute #) 0.68 x10^3/uL (0.30-0.82); NUCLEATED RBC # 0.00 x10^3u/L (0.00-0.012); NUCLEATED RBC % 0.0 % (0.00-0.2); Platelet Count 160 x10^3/uL (163-337); Red Blood Count 4.61 x10^6/uL (4.63-6.08); White Blood Count 7.2 x10^3/uL (4.23-9.07)
[2024-10-25 05:04] LABS: Calcium 9.5 mg/dL (8.4-10.2); Carbon Dioxide 28.0 mmol/L (22-30); Creatinine 1 1.61 mg/dL (0.66-1.25); EST GLOMERULAR FILTRATION RATE 43.8 ML/MIN; Glucose 90.0 mg/dL (74-106); Potassium 4.1 mmol/L (3.5-5.1); SGOT/AST 20.0 U/L (17-59); SGPT/ALT 8.0 U/L (0-50); Total Protein 6.8 g/dL (6.3-8.2)
[2024-10-25] MEDS: PATIENT OWN MEDICATION IH SCH (07:16)
[2024-10-25] MEDS: Mylicon 80MG PO PRN (09:25)
[2024-10-25] MEDS: Docusate Sodium 100 MG PO PRN (09:27)
--- NOTE | 2024-10-25 09:33 | PCM.NOTE ---
Date and Time: 10/25/24923 Subjective Assessment: Mr. Lan is a 79-year-old male with a PMXH of HTN, HLD, CKD, colovesical fistula status post colectomy, who presented 10/20/24 with a three-day history of nausea, abdominal pain, and multiple episodes of non-bloody, non-bilious emesis. On arrival, he appeared clinically volume-depleted but hemodynamically stable. A CT abdomen/pelvis showed dilated jejunal loops with air-fluid levels, consistent with a small bowel obstruction, without signs of ischemia or perforation. No acute cholecystitis was noted, though incidental cholelithiasis was present. He was initiated on IV fluids, pain control, and Ceftriaxone for a concurrent urinary tract infection, with urine culture showing gram-negative organisms and culture pending sensistivity. His creatinine was elevated at 1.8 on admission, slightly above his known baseline of 1.5, now improving with resuscitation. As of hospital day two, his abdominal pain is better controlled,complaints of nauseas remain- patient declines NG placement, and he is tolerating conservative management. Surgery has been consulted and KUB series w/co ordered, patient to remain NPO. 10/22/24: Met with patient bedside. Endorses nausea and vomiting overnight. No bowel movement yet, but passing gas. Bowel sounds are present but hypoactive. Abdomen is tender on exam, though not distended. Discussed placing an NG tube, and the patient is now on board with the plan. Latest KUB shows mildly dilated, gas- filled small bowel loops in the left upper quadrant, but less than on the previous film. No free air. Plan is to continue serial KUBs per surgerys recommendation, keep IV fluids going, and continue treating the UTI. Antibiotics have been changed to renally dosed Levaquin to cover pseudomonas resulted on culture. 10/23: No overnight events noted. Endorses improvement with abdominal pain and no nausea/vomiting since NG placed yesterday. He is passing gas. No BM. Surgery following with recommendations for continued conservative management. Patient advised to ambulate. KUB scheduled for today. Patient does complain of cough which he reports as chronic. Lung sounds with crackles at the bases. CXR from yesterday does show possible infiltrate vs atelectasis. Patient is on Levaquin for UTI which will cover. Will add flutter and IS to help with non productive cough. Labs with hypokalemia today- will replenish. Denies fever,cough, sob, cp, abdominal pain, CRAMER, dizziness, N/V/D. 10/24: Patient evaluated at bedside. KUB from 10/23 shows mildly distended small bowel loops without evidence of obstruction; findings are grossly stable. Minimal rectal gas; no enteric contrast visualized, likely passed. NG tube removed 10/23 per surgery; clear liquid diet initiated. Patient tolerating CLD without nausea or vomiting; abdominal pain resolved. Passing flatus; no bowel movement yet. Bowel sounds present in all four quadrants. Plan to advance diet as tolerated. Continue Levaquin for Pseudomonas UTI per culture. Lab with hypomagnesemia- will replenish and recheck in a.m. 10/25: Patient tolerating diet with no nausea/vomiting. Reports "gas pains" this morning. Abdominal pain resolved. No BM yet but +flatulence. Encouraged ambulation and hydration. Miralax ordered by surgery- will add docusate and gas- x. Denies dysuria. Continue levaquin for UTI with pseudomonas. Creat is at baseline at 1.61 but elevated from yesterday's labs. Mag level WNL after replenishment. - Review of Systems Constitutional: No Symptoms Eyes: No Symptoms Ears, Nose, & Throat: No Symptoms Respiratory: No Symptoms Cardiac: No Symptoms Abdominal/Gastrointestinal: Other ("gas pains") Genitourinary Symptoms: No Symptoms Musculoskeletal: No Symptoms Skin: No Symptoms Neurological: No Symptoms Psychological: No Symptoms Endocrine: No Symptoms Hematologic/Lymphatic: No Symptoms Immunological/Allergic: No Symptoms Objective Exam General Appearance: no apparent distress Neurologic Exam: alert, oriented x 3, cooperative Skin Exam: normal color Eye Exam: PERRL Ears, Nose, Throat Exam: normal ENT inspection Neck Exam: normal inspection Respiratory Exam: normal breath sounds, lungs clear Cardiovascular Exam: regular rate/rhythm, normal heart sounds Gastrointestinal/Abdomen Exam: soft, normal bowel sounds Extremity Exam: normal inspection Back Exam: normal inspection Male Genitalia Exam: deferred Rectal Exam: deferred Objective Data Vital Signs: Vital Signs - 24 hr Temp Pulse Resp BP Pulse Ox 10/25/24 07:23 97.6 F 78 16 94/56 98 10/25/24 07:17 74 16 95 10/25/24 04:00 97.0 F 82 16 108/62 97 10/24/24 20:00 97.7 F 71 16 100/67 93 L 10/24/24 19:57 98 10/24/24 16:00 97.8 F 67 16 104/61 98 10/24/24 11:18 98.0 F 62 16 130/64 95 Pain Assessment - Last Documented Pain Intensity 0 Pain Scale Used 0-10 Pain Scale Intake and Output: Intake & Output 10/22/24 10/23/24 10/24/24 10/25/24 11:59 11:59 11:59 11:59 Intake Total 1965 2825 2314 2420 Output Total 1500 2500 450 Balance 375 112 8289 2420 Weight 62.7 kg Lab Results: Lab Results-Last 24 Hours 10/25/24 10/25/24 10/25/24 Range/Units 04:30 04:30 04:30 WBC 7.2 (4.23-9.07) x10^3/uL RBC 4.61 L (4.63-6.08) x10^6/uL Hgb 14.1 (13.7-17.5) g/dL Hct 42.9 (40.1-51.0) % MCV 93.1 H (79.0-92.2) fL MCH 30.6 (25.7-32.2) pg MCHC 32.9 (32.3-36.5) g/dL RDW 12.8 (11.6-14.4) % Plt Count 160 L (163-337) x10^3/uL MPV 9.6 (9.4-12.4) fL Gran % 63.2 (34.0-67.9) % Immature Gran % (Auto) 0.3 (0.001-0.429) % Nucleat RBC Rel Count 0.0 (0.00-0.2) % Eos # (Auto) 0.61 H (0.04-0.54) x10^3/uL Immature Gran # (Auto) 0.02 (0.001-0.031) x10^3u/L Absolute Lymphs (auto) 1.28 L (1.32-3.57) x10^3/uL Absolute Monos (auto) 0.68 (0.30-0.82) x10^3/uL Absolute Nucleated RBC 0.00 (0.00-0.012) x10^3u/L Lymphocytes % 17.8 L (21.8-53.1) % Monocytes % 9.4 (5.3-12.2) % Eosinophils % 8.5 H (0.8-7.0) % Basophils % 0.8 (0.2-1.2) % Absolute Granulocytes 4.56 (1.78-5.38) x10^3/uL Basophils # 0.06 (0.01-0.08) x10^3/uL Sodium 137 (135-145) mmol/L Potassium 4.1 (3.5-5.1) mmol/L Chloride 100 (98-107) mmol/L Carbon Dioxide 28 (22-30) mmol/L Anion Gap 13.3 (5-15) MEQ/L BUN 20 (9-20) mg/dL Creatinine 1.61 H (0.66-1.25) mg/dL Estimated GFR 43.8 ML/MIN Glucose 90 (74-106) mg/dL Calcium 9.5 (8.4-10.2) mg/dL Magnesium 1.8 (1.6-2.3) mg/dL Total Bilirubin 0.60 (0.2-1.3) mg/dL AST 20 (17-59) U/L ALT 8 (0-50) U/L Alkaline Phosphatase 81 (38-126) U/L Serum Total Protein 6.8 (6.3-8.2) g/dL Albumin 3.9 (3.5-5.0) g/dL Radiology Exams: Radiology Procedures Category Date Time Status KUB Routine Exams 10/23/24 09:00 Completed Medications: Medications Generic Name Dose Route Start Last Admin Trade Name Freq PRN Reason Stop Dose Admin Acetaminophen 650 mg 10/20/24 21:26 10/20/24 22:15 Acetaminophen 325 Mg Tablet PO 11/19/24 21:25 650 mg Q4H PRN PRN Administration PAIN, FEVER, HEADACHE Amlodipine Besylate 2.5 mg 10/21/24 10:00 10/24/24 09:00 Amlodipine Besylate 5 Mg Tablet PO 11/20/24 09:59 2.5 mg DAILY EVELIN Administration Aspirin 81 mg 10/21/24 10:00 10/24/24 10:52 Aspirin 81 Mg Tablet.Ec PO 11/20/24 09:59 81 mg DAILY EVELIN Administration Cyanocobalamin 2,500 mcg 10/21/24 10:00 10/24/24 09:01 Cyanocobalamin 500 Mcg Tablet PO 11/20/24 09:59 2,500 mcg DAILY EVELIN Administration Docusate Sodium 100 mg 10/25/24 08:07 Docusate Sodium 100 Mg Capsule PO 11/24/24 08:06 BIDPRN PRN CONSTIPATION Enoxaparin Sodium 40 mg 10/21/24 10:00 10/24/24 10:52 Enoxaparin Sodium 40 Mg/0.4 Ml Syringe SQ 11/20/24 09:59 40 mg DAILY EVELIN Administration Ferrous Sulfate 325 mg 10/21/24 10:00 10/24/24 08:59 Ferrous Sulfate 325 Mg Tablet PO 11/20/24 09:59 325 mg DAILY EVELIN Administration Gabapentin 100 mg 10/21/24 10:00 10/24/24 09:01 Gabapentin 100 Mg Capsule PO 11/20/24 09:59 100 mg DAILY EVELIN Administration Hydromorphone HCl 1 mg 10/20/24 22:54 10/21/24 18:05 Hydromorphone 1 Mg/1ml Inj IV 10/25/24 22:53 1 mg Q4H PRN PRN Administration PAIN Levofloxacin/Dextrose 250 mg in 50 mls @ 50 mls/hr 10/23/24 10:00 10/24/24 09:02 Levaquin 250mg/50ml D5w IV 11/22/24 09:59 50 mls/hr Q24H10 EVELIN Administration Levothyroxine Sodium 50 mcg 10/21/24 10:00 10/24/24 09:02 Levothyroxine Sodium 50 Mcg Tablet PO 11/20/24 09:59 50 mcg DAILY EVELIN Administration Metoprolol Tartrate 25 mg 10/21/24 10:00 10/24/24 21:39 Metoprolol Tartrate 25 Mg Tab PO 11/20/24 09:59 25 mg BID EVELIN Administration Ondansetron HCl 4 mg 10/20/24 21:26 10/22/24 03:38 Ondansetron Hcl 4 Mg/2 Ml Vial IV 11/19/24 21:25 4 mg Q6H PRN PRN Administration NAUSEA/VOMITING Pantoprazole Sodium 40 mg 10/21/24 10:00 10/24/24 09:00 Protonix (Pantoprazole) 40 Mg Tablet PO 11/20/24 09:59 40 mg DAILY EVELIN Administration Patient Own Med : 1 each 10/24/24 07:00 10/25/24 07:16 Breo Ellipta 100 Mcg IH 11/23/24 06:59 1 each /25 Mcg DAILY@0700 EVELIN Administration Polyethylene Glycol 17 gm 10/24/24 14:27 10/24/24 14:44 Polyethylene Glycol 3350 17 Gm Packet PO 11/23/24 14:26 17 gm DAILY EVELIN Administration Primidone 50 mg 10/21/24 10:00 10/24/24 09:02 Primidone 50 Mg Tablet PO 11/20/24 09:59 50 mg DAILY EVELIN Administration Prochlorperazine Edisylate 10 mg 10/22/24 00:40 10/22/24 00:44 Prochlorperazine Edisylate 10 Mg/2 Ml Vial IV 11/21/24 00:39 10 mg Q8H PRN PRN Administration NAUSEA/VOMITING Simethicone 80 mg 10/25/24 08:07 Simethicone 80 Mg Tab.Chew PO 11/24/24 08:06 QID PRN PRN GAS Simvastatin 40 mg 10/21/24 10:00 10/24/24 08:59 Simvastatin 20 Mg Tablet PO 11/20/24 09:59 40 mg DAILY EVELIN Administration Tamsulosin HCl 0.4 mg 10/21/24 10:00 10/24/24 09:00 Tamsulosin Hcl 0.4 Mg Cap PO 11/20/24 09:59 0.4 mg DAILY EVELIN Administration Discontinued Medications Generic Name Dose Route Start Last Admin Trade Name Freq PRN Reason Stop Dose Admin Hydromorphone HCl 0.5 mg 10/20/24 17:36 10/20/24 18:34 Hydromorphone 1 Mg/1ml Inj IV 10/20/24 17:37 0.5 mg STAT ONE Administration Hydromorphone HCl Confirm 10/20/24 18:26 Hydromorphone 1 Mg/1ml Inj Administered 10/20/24 18:27 Dose 1 mg .ROUTE .STK-MED ONE Sodium Chloride 1,000 mls @ 999 mls/hr 10/20/24 17:36 10/20/24 20:07 Sodium Chloride 0.9% 1000 Ml IV 10/20/24 18:36 Infused .Q1H1M STA Infusion Sodium Chloride Confirm 10/20/24 18:27 Sodium Chloride 0.9% 1000 Ml Administered 10/20/24 18:28 Dose 1,000 mls @ ud .ROUTE .STK-MED ONE Ceftriaxone Sodium 1 gm in 100 mls @ 200 mls/hr 10/20/24 18:46 10/20/24 20:35 Rocephin 1 Gm / 100 Ml Nacl IV 10/20/24 19:15 Infused STAT ONE Infusion Ceftriaxone Sodium Confirm 10/20/24 19:56 Rocephin 1 Gm / 100 Ml Nacl Administered 10/20/24 19:57 Dose 1 gm in 100 mls @ ud IV .STK-MED ONE Sodium Chloride 1,000 mls @ 125 mls/hr 10/20/24 21:30 10/21/24 05:38 Sodium Chloride 0.9% 1000 Ml IV 11/19/24 21:29 125 mls/hr .Q8H EVELIN Administration Ceftriaxone Sodium 1 gm in 100 mls @ 200 mls/hr 10/21/24 10:00 10/21/24 09:28 Rocephin 1 Gm / 100 Ml Nacl IV 11/20/24 09:59 200 mls/hr Q24H10 EVELIN Administration Dextrose/Sodium Chloride 1,000 mls @ 75 mls/hr 10/21/24 08:00 10/23/24 17:00 Dextrose 5%-Ns Iv Solution 1000 Ml IV 11/20/24 07:59 Not Given .[id number] EVELIN Levofloxacin/Dextrose 500 mg in 100 mls @ 100 mls/hr 10/22/24 10:00 10/22/24 09:11 Levofloxacin 500mg/100ml D5w IV 10/22/24 10:59 Not Given ONCE ONE Potassium Chloride 100 mls @ 50 mls/hr 10/23/24 07:30 10/23/24 15:06 Potassium Chloride 20 Meq In Water 100ml IV 10/23/24 15:29 50 mls/hr Q2H EVELIN Administration Magnesium Sulfate/Water 2 gm in 50 mls @ 100 mls/hr 10/24/24 07:30 10/24/24 07:51 Magnesium Sulf 2 G/50 Ml Bag IV 10/24/24 07:59 100 mls/hr ONCE ONE Administration Lorazepam 0.5 mg 10/22/24 08:36 10/22/24 09:24 Lorazepam 2 Mg/1 Ml 2 Mg Vial IV 10/22/24 08:37 0.5 mg ONCE ONE Administration Metoprolol Tartrate 5 mg 10/20/24 23:00 10/21/24 04:07 Metoprolol Tartrate 5 Mg/5 Ml Vial IV 11/19/24 22:59 5 mg Q6H EVELIN Administration Miscellaneous Information 1 each 10/21/24 09:00 Medication Intervention 1 Each Each 11/20/24 08:59 .RN TO CHECK [facility] Non-Formulary Medication 1 each 10/22/24 07:37 10/23/24 09:28 Pharmacy Dosing Request 10/22/24 07:38 Not Given STAT ONE Ondansetron HCl 4 mg 10/20/24 17:36 10/20/24 18:30 Ondansetron Hcl 4 Mg/2 Ml Vial IV 10/20/24 17:37 4 mg STAT ONE Administration Ondansetron HCl Confirm 10/20/24 18:25 Ondansetron Hcl 4 Mg/2 Ml Vial Administered 10/20/24 18:26 Dose 4 mg .ROUTE .STK-MED ONE Pantoprazole Sodium 40 mg 10/20/24 17:36 10/20/24 18:32 Pantoprazole 40 Mg Vial IV 10/20/24 17:37 40 mg STAT ONE Administration Pantoprazole Sodium Confirm 10/20/24 18:26 Pantoprazole 40 Mg Vial Administered 10/20/24 18:27 Dose 40 mg IV .STK-MED ONE Patient Own Medication 1 each 10/24/24 07:00 10/24/24 06:55 Patient Own Med Misc 11/23/24 06:59 Not Given DAILY [facility] Multi-Disciplinary Progress Notes: Multi-Disciplinary Progress Notes 10/25/24 09:22 Case Management Note by Alexandrea Louie S/W PATIENT AND HE CONTINUES TO [facility]. PLANS TO RETURN HOME TO HIS [facility] WITH HIS BROTHER AND [facility]. Initialized on 10/25/24 09:22 - END OF NOTE 10/24/24 10:15 Case Management Note by Stepro,Alexandrea S/W PATIENT AND BROTHER AND HE STATES FEELING MUCH BETTER TODAY. STILL PLANS TO RETURN HOME AT HIS [facility] WITH HIS BROTHER AND [facility] TO SUPPORT. Initialized on 10/24/24 10:15 - END OF NOTE Assessment/Plan (1) Small bowel obstruction Current Visit: Yes Status: Acute Assessment & Plan: -CT A/P: Dilated jejunal loops, multiple air-fluid levels, no signs of ischemia or perforation -WBC normalized at 7.9, no leukocytosis, no lactic acidosis -NPO, IVF, IV Dilaudid for pain, Zofran/compazine PRN for nausea -General surgery consulted and note reviewed with recommendations for KUB series w/ contrast - most recent KUB performed 10/22 showing mildly dilated, gas-filled small bowel loops in the left upper belly area less prominent than on the previous exam. No free air is seen. -NG placed to LIS - CXR to confirm placement pending 10/23: -CMP/CBC reviewed -Surgery following, no documentation to review- per RN plan for conservative management - KUB scheduled for today -NG placed to LIS- CXR confirmed 10/24: -KUB reviewed showing mild uniformly air distended small bowel loops without focal bowel dilatation/obstruction, grossly unchanged. Stable minimal rectal bowel gas. Enteric contrast not visualized presumed passed. New NG tube coiled in stomach. Solid organs unremarkable. -Surgery following, documentation not available, per RN report- surgery has ordered d/c of NG tube and CLD -CMP/CBC reviewed -Advance diet as tolerated 10/25: -Tolerating diet with no nausea/vomiting/abdominal pain or distention -+flatulence, - BM -Surgery note reviewed- agree with plan - pt can discharge once he has BM with follow up in 2 weeks- Miralax added and will continue -Gas-X and docusate added prn -Encouraged ambulation and adequate hydration Code(s): K56.609 - UNSP INTESTNL OBST, UNSP TO PARTIAL VERSUS COMPLETE OBST ## abnormal finding of lung field -Patient with cough and crackles at bilateral bases; no fever or leukocytosis -CXR reviewed and shows minimal left basilar infiltrate vs atelectasis -Likely atelectasis or mild aspiration-related changes given clinical picture and ileus/SBO. -Already receiving Levaquin which provides partial pulmonary coverage. -Continue Levaquin (currently for UTI; provides coverage if infiltrate is infectious) -IS/flutter -Ambulation as tolerated to improve lung expansion ##Hypokalemia -Potassium reviewed at 3.2- will replenish per potassium protocol 10/24: -Potassium reviewed at 4.1 after replenishment 10/23- continue to trend ##Hypomagnesemia 10/24: -Mag level reviewed at 1.5- replenish per protocol, recheck in a.m. (2) Acute on chronic renal failure Current Visit: Yes Status: Acute Assessment & Plan: -Admission creatinine 1.8, baseline 1.6; now improving with hydration at 1.45- trend -Likely prerenal due to volume depletion in the setting of SBO and UTI -Continue IVF, switched to D5-containing fluids due to glucose 71; monitor renal function daily 10/23: -Creat reviewed a t1.27- better than baseline of 1.6- continue IVF with SBO -Avoid nephrotoxins 10/24: -Creat reviewed at 1.36-better than previous baseline -encourage oral hydration- consider restarting IVF 10/25: -Creat reviewed at 1.61- at baseline but elevated from yesterday -will start IVF at low rate 50ml/hr- encouraged oral hydration Code(s): N17.9 - ACUTE KIDNEY FAILURE, UNSPECIFIED; N18.9 - CHRONIC KIDNEY DISEASE, UNSPECIFIED (3) Dehydration Current Visit: Yes Status: Acute Assessment & Plan: -Likely multifactorial due to vomiting, poor oral intake, and baseline CKD -BUN/Cr elevated, AG 12.2, glucose 71 -Continue IV fluids; currently receiving IVF with D5 due to borderline hypoglycemia 10/25: -NS at 50ml/hr Code(s): E86.0 - DEHYDRATION (4) Urinary tract infection Current Visit: Yes Status: Acute Assessment & Plan: -Urine culture with pseudomonas- ceftriaxone discontinued- levaquin started IV due to SBO - renally dosed Code(s): N39.0 - URINARY TRACT INFECTION, SITE NOT SPECIFIED (5) Hypertensive chronic kidney disease with stage 1 through stage 4 chronic kidney disease, or unspecified chronic kidney disease Current Visit: Yes Status: Chronic Assessment & Plan: -Chronic diagnosis -BP currently controlled without need for escalation -Continue home antihypertensives 10/25: -BP low this morning - hold home meds Code(s): I12.9 - HYPERTENSIVE CHRONIC KIDNEY DISEASE W STG 1-4/UNSP CHR KDNY (6) Colovesical fistula Current Visit: Yes Status: Resolved Assessment & Plan: -Status post partial colectomy VTE: Lovenox PPI: Protonix Next of KIN: friend- Leslie Robins [phone] D/C plan: 1-2 days Code status: Full Code(s): K56.609 - UNSP INTESTNL OBST, UNSP TO PARTIAL VERSUS COMPLETE OBST (2) Acute on chronic renal failure Current Visit: Yes Status: Acute Code(s): N17.9 - ACUTE KIDNEY FAILURE, UNSPECIFIED; N18.9 - CHRONIC KIDNEY DISEASE, UNSPECIFIED (3) Dehydration Current Visit: Yes Status: Acute Code(s): E86.0 - DEHYDRATION (4) Urinary tract infection Current Visit: Yes Status: Acute Code(s): N39.0 - URINARY TRACT INFECTION, SITE NOT SPECIFIED (5) Hypertensive chronic kidney disease with stage 1 through stage 4 chronic kidney disease, or unspecified chronic kidney disease Current Visit: Yes Status: Chronic Code(s): I12.9 - HYPERTENSIVE CHRONIC KIDNEY DISEASE W STG 1-4/UNSP CHR KDNY (6) Colovesical fistula Current Visit: Yes Status: Resolved Code(s): N32.1 - VESICOINTESTINAL FISTULA (7) Other nonspecific abnormal finding of lung field Current Visit: Yes Status: Acute Code(s): R91.8 - OTHER NONSPECIFIC ABNORMAL FINDING OF LUNG FIELD (8) Hypokalemia Current Visit: Yes Status: Acute Code(s): E87.6 - HYPOKALEMIA (9) Hypomagnesemia Current Visit: Yes Status: Acute Code(s): E83.42 - HYPOMAGNESEMIA
--- NOTE | 2024-10-25 10:32 | CONS ---
HISTORY: The patient was seen and examined on 10/23. Patient had a Gastrografin swallow this morning. It did get to cecum. In 12/2018, he had a sigmoid colorectal fistula and he had a sigmoid colon resection. He also had a colonoscopy around this period of time. The colonoscopy was basically satisfactory other than diverticulosis. That was back in 2018. He did not have any polyps then. He may have had a nasogastric tube. He had substantial improvement in his abdominal distention and tenderness. PHYSICAL EXAMINATION: His abdomen is fairly soft. He is nontender. He is getting clear liquids. He has not passed gas or bowel movement yet, but I would expect so after the negative Gastrografin. IMPRESSION AND PLAN: It sounds like patient probably has some adhesions. He benefited from the nasogastric tube. It looks like it would probably relieve the obstruction. He is being advanced on his diet. I think his colonoscopy is recent enough and he never had polyps. He is 79 years old. I do not think I would jump to do a colonoscopic examination although one could be done some time before long. We would be glad to see him back in the office as necessary. As a matter of fact, I think I would just expect to see him back in the office in 2 to 4 weeks after his discharge.
[2024-10-25 15:49] VITALS: BP 109/64; PULSE 76; TEMP 97.8; O2SAT 97
--- NOTE | 2024-10-25 18:33 | PCM.DS ---
Discharge Summary Date of Admission: 10/21/24 10:48 Date of Discharge: 10/25/24 Admitting Physician: PILO FLORIAN MD Consults: Consults on Case 10/20/24 21:26 Consult Surgery ROUTINE Primary Care Provider: EMMETT BARRETO MD Allergies Allergies No Known Drug Allergies Allergy (Verified 10/20/24 17:41) Hospital Summary - Hospital Course Hospital Course: Mr. Lan is a 79-year-old male with a complex medical history including hypertension, hyperlipidemia, chronic kidney disease, and a history of colovesical fistula status-post colectomy, who presented on 10/20/24 with a three-day history of nausea, abdominal pain, and multiple episodes of non- bloody, non-bilious vomiting. He appeared volume-depleted on admission, though he remained hemodynamically stable. A CT scan of the abdomen and pelvis demonstrated dilated jejunal loops with air-fluid levels, consistent with a small bowel obstruction (SBO), but without signs of bowel ischemia or perforation. Notably, there was no acute cholecystitis, though cholelithiasis was incidentally noted. He was managed conservatively with bowel rest (NPO), IV fluids, pain control, and empiric antibiotics (ceftriaxone) for a concurrent urinary tract infection (UTI). His renal function was mildly worsened on admission but responded to hydration. Over the course of his hospitalization, serial KUB imaging and surgical consultation guided continued conservative management. The patient eventually agreed to nasogastric decompression, which provided symptomatic relief. By 10/24, abdominal symptoms were significantly improved, and he tolerated a clear liquid diet without recurrence of nausea or emesis. KUB showed bowel obstruction had resolved. His abdominal pain resolved, and he was passing flatus, though he had not yet had a bowel movement. Surgery cleared him for discharge on 10/25, with instructions for supportive bowel regimen and outpatient follow-up. His UTI was found to be due to Pseudomonas and was appropriately transitioned to renally dosed IV Levofloxacin. Additionally, incidental crackles on lung exam and a questionable left basilar infiltrate on chest X-ray were managed supportively, as he remained afebrile and without leukocytosis. Electrolyte disturbances, including hypokalemia and hypomagnesemia, were corrected during his stay. Renal function returned to baseline. He was discharged in stable condition with plans for follow-up in two weeks, and instructions to return for any recurrence of obstructive symptoms or inability to move bowels. Discharge Note New Diagnosis: Small Bowel Obstruction/UTI New Medications:Levaquin -renally dosed by pharmacy at 250mg to complete a total of 10 day course- 7 days remaining Follow Up: PCP/ Surgery Outpatient testing to order: Ucult I spent 35 minutes [id number] with the patient on the day of discharge performing discharge exam, discussing hospital stay and discharge instructions with patient and caregivers, preparation of discharge records, prescriptions & referral forms and addressing any questions/concerns the patient had as documented above. - Vitals & Intake/Output Vital Signs: Vital Signs Temperature 97.8 F 10/25/24 15:49 Pulse Rate 76 10/25/24 15:49 Respiratory Rate 16 10/25/24 15:49 Blood Pressure 109/64 10/25/24 15:49 O2 Sat by Pulse Oximetry 97 10/25/24 15:49 Intake & Output: Intake & Output 10/23/24 10/24/24 10/25/24 10/26/24 11:59 11:59 11:59 11:59 Intake Total 2825 2314 2420 60 Output Total 2500 450 Balance 325 1864 2420 60 Weight 62.7 kg - Lab Result Diagrams: 10/25/24 04:30 10/25/24 04:30 Lab Results-Last 24 Hrs: Lab Results-Last 24 Hours 10/25/24 10/25/24 10/25/24 Range/Units 04:30 04:30 04:30 WBC 7.2 (4.23-9.07) x10^3/uL RBC 4.61 L (4.63-6.08) x10^6/uL Hgb 14.1 (13.7-17.5) g/dL Hct 42.9 (40.1-51.0) % MCV 93.1 H (79.0-92.2) fL MCH 30.6 (25.7-32.2) pg MCHC 32.9 (32.3-36.5) g/dL RDW 12.8 (11.6-14.4) % Plt Count 160 L (163-337) x10^3/uL MPV 9.6 (9.4-12.4) fL Gran % 63.2 (34.0-67.9) % Immature Gran % (Auto) 0.3 (0.001-0.429) % Nucleat RBC Rel Count 0.0 (0.00-0.2) % Eos # (Auto) 0.61 H (0.04-0.54) x10^3/uL Immature Gran # (Auto) 0.02 (0.001-0.031) x10^3u/L Absolute Lymphs (auto) 1.28 L (1.32-3.57) x10^3/uL Absolute Monos (auto) 0.68 (0.30-0.82) x10^3/uL Absolute Nucleated RBC 0.00 (0.00-0.012) x10^3u/L Lymphocytes % 17.8 L (21.8-53.1) % Monocytes % 9.4 (5.3-12.2) % Eosinophils % 8.5 H (0.8-7.0) % Basophils % 0.8 (0.2-1.2) % Absolute Granulocytes 4.56 (1.78-5.38) x10^3/uL Basophils # 0.06 (0.01-0.08) x10^3/uL Sodium 137 (135-145) mmol/L Potassium 4.1 (3.5-5.1) mmol/L Chloride 100 (98-107) mmol/L Carbon Dioxide 28 (22-30) mmol/L Anion Gap 13.3 (5-15) MEQ/L BUN 20 (9-20) mg/dL Creatinine 1.61 H (0.66-1.25) mg/dL Estimated GFR 43.8 ML/MIN Glucose 90 (74-106) mg/dL Calcium 9.5 (8.4-10.2) mg/dL Magnesium 1.8 (1.6-2.3) mg/dL Total Bilirubin 0.60 (0.2-1.3) mg/dL AST 20 (17-59) U/L ALT 8 (0-50) U/L Alkaline Phosphatase 81 (38-126) U/L Serum Total Protein 6.8 (6.3-8.2) g/dL Albumin 3.9 (3.5-5.0) g/dL Micro Results-Entire Visit: Microbiology 10/20/24 17:52 Urine Culture - Final Urine, Void Pseudomonas Aeruginosa - Procedures and Test Procedures and Tests throughout Hospitalization: Therapy Orders & Screens 10/23/24 08:13 FLUTTER [Flutter Therapy] UD Comment: Diagnosis: SMALL BOWEL OBSTRUCTION 10/23/24 09:33 Respiratory Therapy Assessment DAILY Comment: Diagnosis: SMALL BOWEL OBSTRUCTION 10/23/24 18:34 Incentive Spirometry PRN Comment: Diagnosis: SMALL BOWEL OBSTRUCTION 10/24/24 07:00 Respiratory MDI DAILY Comment: ANURADHA MALAVETA 1 INHALATION DAILY Diagnosis: SMALL BOWEL OBSTRUCTION Discharge Exam General Appearance: no apparent distress Neurologic Exam: alert, oriented x 3, cooperative Eye Exam: PERRL Ears, Nose, Throat Exam: normal ENT inspection Neck Exam: normal inspection Respiratory Exam: normal breath sounds, lungs clear Cardiovascular Exam: regular rate/rhythm, normal heart sounds Gastrointestinal/Abdomen Exam: soft, normal bowel sounds Male Genitalia Exam: deferred Rectal Exam: deferred Back Exam: normal inspection Extremity Exam: normal inspection Skin Exam: normal color Final Diagnosis/Problem List - Final Discharge Diagnosis/Problem (1) Small bowel obstruction Current Visit: Yes Status: Acute Assessment & Plan: Conservative management with bowel rest, NG decompression, and serial abdominal imaging Abdominal pain resolved; tolerating diet; passing flatus No signs of perforation or ischemia on imaging Discharged with bowel regimen: Miralax daily Docusate sodium 100 mg BID PRN Simethicone (Gas-X) 80 mg PRN Encourage ambulation and oral hydration Follow-up with surgery or PCP in 2 weeks Return to ED if N/V or abdominal pain recur or no BM within 23 days Code(s): K56.609 - UNSP INTESTNL OBST, UNSP TO PARTIAL VERSUS COMPLETE OBST (2) Acute on chronic renal failure Current Visit: Yes Status: Acute Assessment & Plan: Admission Cr 1.8, baseline ~1.6; improved with fluids to 1.27, then plateaued at baseline Etiology: prerenal azotemia due to volume depletion Avoided nephrotoxic agents IV fluids used cautiously, later transitioned to PO hydration Monitor renal function outpatient Encourage oral hydration Avoid NSAIDs or nephrotoxic medications Code(s): N17.9 - ACUTE KIDNEY FAILURE, UNSPECIFIED; N18.9 - CHRONIC KIDNEY DISEASE, UNSPECIFIED (3) Dehydration Current Visit: Yes Status: Acute Assessment & Plan: resolved Code(s): E86.0 - DEHYDRATION (4) Urinary tract infection Current Visit: Yes Status: Acute Assessment & Plan: Culture-positive for Pseudomonas aeruginosa Initial treatment with ceftriaxone changed to IV Levofloxacin Complete full course of Levofloxacin (per sensitivity and renal dosing) Follow-up urinalysis with PCP Code(s): N39.0 - URINARY TRACT INFECTION, SITE NOT SPECIFIED (5) Hypertensive chronic kidney disease with stage 1 through stage 4 chronic kidney disease, or unspecified chronic kidney disease Current Visit: Yes Status: Chronic Assessment & Plan: BP well-controlled throughout admission Code(s): I12.9 - HYPERTENSIVE CHRONIC KIDNEY DISEASE W STG 1-4/UNSP CHR KDNY (6) Colovesical fistula Current Visit: Yes Status: Resolved Assessment & Plan: Continue routine follow-up Monitor for recurrent urinary symptoms or GI infections Code(s): N32.1 - VESICOINTESTINAL FISTULA (7) Other nonspecific abnormal finding of lung field Current Visit: Yes Status: Acute Assessment & Plan: No fever or leukocytosis CXR with left basilar opacities likely due to atelectasis vs aspiration Managed supportively Continue use of incentive spirometry Ambulate regularly Monitor for cough, fever, or respiratory symptoms Levofloxacin also provides partial pulmonary coverage Code(s): R91.8 - OTHER NONSPECIFIC ABNORMAL FINDING OF LUNG FIELD (8) Hypokalemia Current Visit: Yes Status: Acute Assessment & Plan: resolved Code(s): E87.6 - HYPOKALEMIA (9) Hypomagnesemia Current Visit: Yes Status: Acute Assessment & Plan: resolved Code(s): E83.42 - HYPOMAGNESEMIA - Discharge Discharge Date: 10/25/24 Disposition: HOME HEALTH SERVICE Condition: Stable Prescriptions: New Docusate Sodium 100 mg [Docusate Sodium 100 MG] 100 mg PO BIDPRN PRN 30 Days #60 cap PRN Reason: Constipation Polyethylene Glycol 3350 17 gm [Miralax Powder 17GM PACKET] 17 gm PO DAILY 30 Days #30 pkt Simethicone 80 mg [Mylicon 80MG] 80 mg PO QID PRN PRN 30 Days #30 tablet PRN Reason: Gas Levofloxacin [Levofloxacin 250MG Tablet] 250 mg PO DAILY 7 Days #7 tab Continue Cyanocobalamin (Vitamin B-12) [Vitamin B-12] 2,500 mcg PO DAILY Ferrous Sulfate [Iron] 325 mg PO DAILY Primidone 50 MG [Mysoline 50Mg] 50 mg PO DAILY Aspirin 81 mg PO DAILY Levothyroxine Sodium 50 Mcg [Synthroid 50 Mcg] 50 mcg PO DAILY Fluticasone/Vilanterol [Breo Ellipta 100-25 Mcg Inhalr] 1 inh PO DAILY Tamsulosin HCl [Flomax] 0.4 mg PO DAILY Pravastatin Sodium 40 mg PO DAILY Lansoprazole 30 mg PO DAILY Gabapentin [Neurontin ] 100 mg PO DAILY Amlodipine Besylate [Norvasc] 2.5 mg PO DAILY Metoprolol Tartrate 25 mg [Lopressor 25MG Tab] 25 mg PO BID Additional Instructions: [facility] HAS BEEN SET UP. THEY WILL CONTACT YOU TO ARRANGE A TIME TO COME AND SEE YOU. THEIR PHONE # IS [phone]. Follow up with: EMMETT BARRETO MD [Primary Care Provider, [facility]ILY [facility]ACTICE] - 10/29/24 2:00 pm Referral Note: [facility] SINDHU SÁNCHEZ [ACTIVE STAFF, GENERAL SURGERY] - 2 weeks
== END 2024-10-25 19:28 | disposition home health service (06) | DRG 389 ==
LOC: ED 17:15 → MED SURG 20:47 → OBSVTOIN 10-21 10:48
PROVIDERS: ADMIT Internal Medicine Nephrology; ATTEND Internal Medicine Nephrology
DX: K56.609 Unspecified intestinal obstruction, unspecified as to partial versus complete obstruction (principal); N17.9 Acute kidney failure, unspecified; Z59.811 Housing instability, housed, with risk of homelessness; N39.0 Urinary tract infection, site not specified; N32.1 Vesicointestinal fistula; I12.9 Hypertensive chronic kidney disease with stage 1 through stage 4 chronic kidney disease, or unspecified chronic kidney disease; N18.9 Chronic kidney disease, unspecified; E86.0 Dehydration; B96.5 Pseudomonas (aeruginosa) (mallei) (pseudomallei) as the cause of diseases classified elsewhere; R91.8 Other nonspecific abnormal finding of lung field; E87.6 Hypokalemia; E83.42 Hypomagnesemia; E78.5 Hyperlipidemia, unspecified; Z90.49 Acquired absence of other specified parts of digestive tract; Z79.899 Other long term (current) drug therapy